=== PATIENT | female | born 1950 | race Caucasian/White ===

== ENCOUNTER 2021-10-07 08:47 | Outpatient (CLI) | payer MEDICARE, BC, SELFPAY | END 2021-10-07 08:48 | disposition home or self-care (01) | LOC: CCIC 02-17 14:07 | PROVIDERS: PCP Family Medicine; Visit Provider Internal Medicine Hematology & Oncology | DX: C92.11 Chronic myeloid leukemia, BCR/ABL-positive, in remission (principal); D47.3 Essential (hemorrhagic) thrombocythemia; E87.1 Hypo-osmolality and hyponatremia | CPT/HCPCS: 99212; 99215 ==

== ENCOUNTER 2021-12-22 13:00 | Outpatient (RCR) | payer MEDICARE, BC, SELFPAY ==
--- NOTE | 2021-09-23 16:12 | ONC.NURNOTE ---
Follow up for hyponatremia Shilpi was in touch with PCP and has a lab appt tomorrow am She understands to add sodium to her diet
--- NOTE | 2021-10-28 16:11 | ONC.NURNOTE ---
Lab results called to Shilpi, and reviewed by dr Michel noted K Shilpi is followed by nephrology and Dr Watson and will message her about elevated K Discussed avoiding foods high in potassium- list reviewed next lab appt discussed
--- NOTE | 2021-11-25 14:32 | ONC.NURNOTE ---
Lab results reviewed by Dr Michel and called to domonique as stable no changes Lab in 1 mth and then RTC with Dr Michel
== END 2022-03-16 10:37 | disposition home or self-care (01) ==
PROVIDERS: PCP Family Medicine; Visit Provider Family Medicine
DX: R26.9 Unspecified abnormalities of gait and mobility (principal); Z51.89 Encounter for other specified aftercare
CPT/HCPCS: 97110; 97112; 97140

== ENCOUNTER 2022-01-06 13:49 | Outpatient (RCR) | payer MEDICARE, BC, SELFPAY ==
--- NOTE | 2022-02-03 10:24 | ONC.NURNOTE ---
Oncology transfer: Patient wishes to stay at [place] and see the [facility]/Dr. Michel. She is going to [place] and will return for follow up in June.
--- NOTE | 2022-02-10 14:07 | ONC.NURNOTE ---
per Layla YING and Dr. Michel. ok for pt to wait till June to have a 12L EKG. orders faxed to [facility]. pt called and aware.
--- NOTE | 2022-02-10 14:15 | ONC.NURNOTE ---
Lab planning: to get all labs including BCR/ABL at 2 months- end of Feb then will get all labs upon return from [place] in June- 4 months from last lab
--- NOTE | 2022-03-04 12:49 | ONC.NURNOTE ---
Labs reviewed with Shilpi she has results and BCR/ABL shilpi [place] for [place] and will try to set up lab at a local lab in [place]- she has the order Shilpi returns in June and will need all labs including BCR/ABL, provider appt, and EKG
--- NOTE | 2022-05-04 13:40 | ONC.NURNOTE ---
Lab results received from [place] results called to Shilpi CBC all stable noted Na 128- this has been an ongoing issue for patient -results faxed to [facility] provider ( Dr Watson is out of the office) -Shilpi instructed to increase dietary Na -and to let us know what [facility] does to manage -reports some dizziness when up next appts set up -lab/EKG due at [facility] 06/29/22- orders faxed to [phone] -Dr Michel 07/12/22 refills of anagrelide needed- Layla Walker to refill
--- NOTE | 2022-05-13 14:44 | ONC.NURNOTE ---
follow up call to Shilpi regarding hyponatremia will plan for a lab recheck in [place] has increased her sodium intake and is currently feeling much better, no lightheadedness or unsteadiness
--- NOTE | 2022-05-17 11:27 | ONC.NURNOTE ---
Lab order for sodium recheck faxed to [facility] at and copy of order scanned and emailed to Shilpi
--- NOTE | 2022-05-24 15:11 | ONC.NURNOTE ---
STELLA aguila noted from [place] noted as within the normal range results called to domonique she continues to eat chips and salt her food previous symptoms have resolved next lab due in a month when she returns from [place]
== END 2022-07-05 23:59 | disposition home or self-care (01) ==
LOC: CCIC 13:49
PROVIDERS: PCP Family Medicine; Visit Provider Internal Medicine Hematology & Oncology
DX: D47.3 Essential (hemorrhagic) thrombocythemia (principal); C92.11 Chronic myeloid leukemia, BCR/ABL-positive, in remission; E87.1 Hypo-osmolality and hyponatremia
CPT/HCPCS: 99212; 99213; 99214

== ENCOUNTER 2023-01-04 12:47 | Emergency (ER) | payer MEDICARE, BC, SELFPAY ==
[2023-01-04 13:27] VITALS: BP 180/84; PULSE 70; RESP 16; TEMP 36.4; O2SAT 99; BMI 33.1
--- NOTE | 2023-01-04 13:34 | CRLHL7_ITS ---
For Patients: As a result of the Cures Act, medical imaging exams and procedure reports are released immediately into your electronic medical record. You may view this report before your referring provider. If you have questions, please contact your health care provider. INDICATION: Fall, right hip pain COMPARISON: None. TECHNIQUE: AP pelvis and AP and frog-leg lateral right hip. FINDINGS: BONES: No fracture. Normal bone mineralization. No focal bone lesion. JOINT: Alignment: Normal. Joint spaces: Osteoarthritis with mild joint space narrowing. SOFT TISSUES: Normal. IMPRESSION: Normal pelvis and right hip radiographs. Dictated by Anyi Sr MD @ 01/04/2023 2:59:29 PM (Electronically Signed)
--- NOTE | 2023-01-04 17:10 | ED.FALL ---
HPI - Fall General Time Seen by Provider: 17:10 Date Seen: 01/04/23 Chief Complaint: Fall/Minor Trauma Stated Complaint: Fell, hip pain Time Seen by Provider: 01/04/23 17:10 Source: patient, family (Daughter is with) and RN notes reviewed Mode of arrival: wheelchair Limitations: no limitations History of Present Illness HPI Narrative: Patient is here with her daughter with complaint of right hip pain, points to the outside greater trochanter area, sustained after a fall earlier today. She lost her balance, was either going to fall forward hitting her face or to the side, she allowed herself to go to the side in impact went on the right outer hip area. She could not walk after at happen. Her is home from having open heart surgery yesterday, had a valve replacement and atrial appendage closure per report. She was able to get herself up but was having significant pain and could not bear weight. Unfortunately, the ER was extremely busy and volume patient is very high, they did have to wait for a period of time to be seen, I did apologize for this wait. MD complaint: fall Related Data Home Medications Medication Instructions Recorded Confirmed calcium carbonate 200 mg calcium 400 mg PO .hs 10/06/21 01/04/23 (500 mg) chewable tablet (Antacid (calcium carbonate)) clobetasol 0.05 % topical cream 1 applic topical BID 10/06/21 01/04/23 diphenhydramine HCl 25 mg tablet 25 mg PO TID PRN 10/06/21 01/04/23 (Benadryl Allergy) flecainide 100 mg tablet 50 mg PO BID 10/06/21 01/04/23 fluticasone propionate 50 2 spray intranasal QDAY 10/06/21 01/04/23 mcg/actuation nasal spray,suspension (Flonase Allergy Relief) losartan 50 mg tablet 50 mg PO DAILY 10/06/21 01/04/23 allopurinol 100 mg tablet 100 mg PO BID 10/07/21 01/04/23 furosemide 20 mg tablet 20 mg PO BID 01/06/22 01/04/23 metoprolol succinate 50 mg 50 mg PO BID 01/06/22 01/04/23 tablet,extended release 24 hr cholecalciferol (vitamin D3) 125 125 mcg PO QDAY 08/03/22 01/04/23 mcg (5,000 unit) capsule Previous Rx's Medication Instructions Recorded anagrelide 0.5 mg capsule See Rx Instructions .Route 12/13/22 .COMPLEX #135 caps Allergies Allergy/AdvReac Type Severity Reaction Status Date / Time clindamycin Allergy Intermediate Rash Verified 01/04/23 13:26 hydrochlorothiazide Allergy Intermediate Weakness Verified 01/04/23 13:26 acyclovir Allergy Mild Unknown Verified 01/04/23 13:26 Tetracyclines Allergy Mild Unknown Verified 01/04/23 13:26 amlodipine [From Norvasc] Allergy Unknown Edema Verified 01/04/23 13:26 bee venom protein (honey bee) Allergy Unknown Lips and Verified 01/04/23 13:26 Tongue Tingling dasatinib Allergy Unknown Leg Ulcers Verified 01/04/23 13:26 hydroxyurea Allergy Unknown Skin Verified 01/04/23 13:26 Ulcerations naproxen [From Aleve] Allergy Unknown Hives Verified 01/04/23 13:26 Sulfa (Sulfonamide AdvReac Intermediate Rash Verified 01/04/23 13:26 Antibiotics) ciprofloxacin AdvReac Mild Unknown Verified 01/04/23 13:26 lisinopril AdvReac Unknown Cough Verified 01/04/23 13:26 Review of Systems Narrative: She did not hit her head, no neck or back pain. Nothing else hurts at this time. [facility] Medical History (Updated 01/04/23 @ 17:55 by Radha Du MD) Bilateral cataracts ?H26.9 - Unspecified cataract (ICD-10) Hypercholesterolemia ?E78.00 - Pure hypercholesterolemia, unspecified (ICD-10) GERD (gastroesophageal reflux disease) ?K21.9 - Gastro-esophageal reflux disease without esophagitis (ICD-10) Obstructive sleep apnea ?G47.33 - Obstructive sleep apnea (adult) (pediatric) (ICD-10) Basal cell carcinoma (BCC) (04/29/15) ?C44.91 - Basal cell carcinoma of skin, unspecified (ICD-10) Gout ?M10.9 - Gout, unspecified (ICD-10) Scleroderma ?M34.9 - Systemic sclerosis, unspecified (ICD-10) IBS (irritable bowel syndrome) ?K58.9 - Irritable bowel syndrome without diarrhea (ICD-10) Paroxysmal A-fib ?I48.0 - Paroxysmal atrial fibrillation (ICD-10) Migraine with aura ?G43.109 - Migraine with aura, not intractable, without status migrainosus (ICD-10) Anemia ?D64.9 - Anemia, unspecified (ICD-10) Hypertension ?I10 - Essential (primary) hypertension (ICD-10) Multiple food allergies ?Z91.018 - Allergy to other foods (ICD-10) Bradycardia (10/18/11) ?R00.1 - Bradycardia, unspecified (ICD-10) At risk for prolonged QT interval syndrome ?Z91.89 - Other specified personal risk factors, not elsewhere classified (ICD-10) Therapeutic drug monitoring ?Z51.81 - Encounter for therapeutic drug level monitoring (ICD-10) 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 - Chronic myeloid leukemia, BCR/ABL-positive, in remission (ICD-10) Hyponatremia ?E87.1 - Hypo-osmolality and hyponatremia (ICD-10) Lymphedema ?I89.0 - Lymphedema, not elsewhere classified (ICD-10) Essential thrombocytosis ?D47.3 - Essential (hemorrhagic) thrombocythemia (ICD-10) Surgical History History of repair of ACL ?Z98.890 - Other specified postprocedural states (ICD-10) History of facelift ?Z98.890 - Other specified postprocedural states (ICD-10) Hx laparoscopic cholecystectomy ?Z90.49 - Acquired absence of other specified parts of digestive tract (ICD-10) History of permanent cardiac pacemaker placement (12/09/11) ?Z95.0 - Presence of cardiac pacemaker (ICD-10) Family History Mother Thyroid disease Stroke Cervical cancer Diabetes Sister Colon cancer Father High blood pressure Social History Narrative: Cis-gender, heterosexual woman Relationship status: . Spouse/Partner: Raman Education: 1 year of college Occupation: Retired Tobacco: Never smoker E-cigarettes: No Alcohol: Yes: 1-2 servings/week. Illicit/recreational drugs: No Safety concerns at home or work: No Dietary restriction(s): No Exercise: No. What is your current living situation?: I presently have a place to live Problems where you live: no known problems In the past 12 months, utilities in danger of being shut off: no In past 12 months, lack of transportation kept you from medical appts, meetings, work, or getting things needed for daily living: no In the past 12 mos, have been you worried that your food would run out before you had money to buy more?: never true In the past 12 mos, the food you bought just didn't last and you didn't have money to buy more?: never true Smoking Status: Former smoker How often do you have a drink containing alcohol: never How often do you have six or more drinks on one occasion: Never AUDIT-C Alcohol total score: 0 Non-prescribed substance use: denies use How often does anyone, including family, friends and others, physically hurt you: never How often does anyone, including family, friends and others, insult or talk down to you: never How often does anyone, including family, friends and others, threaten you with harm: never How often does anyone, including family, friends and others, scream or curse at you: never service: No Exam Const: Vital Signs, click to edit/add: Vital Signs - 24 hr 01/04/23 13:27 Temperature 97.6 F Pulse Rate [Pulse Oximeter] 70 Respiratory Rate 16 Blood Pressure [Ri ght Upper Arm] 180/84 H Pulse Oximetry 99 Oxygen Delivery Me thod Room Air Shilpi is in exam room 5 in a wheelchair. Breaks or put on the wheelchair, she is able to stand, states she does feel stiff from sitting in the wheelchair for while. On inspection of the skin, I see no ecchymosis, no traumatic change. She has no midline tenderness over the lumbar spine really has no palpable tenderness in the gluteus area, she has pain over the right greater trochanter maybe just a little posteriorly over the point of the greater trochanter. Again there is no ecchymosis seen at this point. She is able to bear weight, states it does feel better than it did earlier. Did review with them that the x-ray was read by the radiologist as negative. Documenting provider has reviewed patient's vital signs: yes Course Course ED Course: Was able to review negative x-ray report when for seen them, x-ray was ordered earlier on arrival for them. Reevaluation(s) Time of Reevaluation #1: 17:52 Reevaluation #1: Did apologize that I had to take a few phone calls from Cardiology and had other patient management issues come up. Her x-rays indeed do show the area where she is painful over the greater trochanter, bone density actually does look quite good, we discussed if she still cannot bear weight, next step in imaging would be to do CT of the area. Her daughter is orthopedic PT and will stay with them, patient does have a wheeled walker. She did take some Tylenol this morning but that was before this happen. We discussed ongoing Tylenol and using some ice to the area. They are going to forego any further imaging at this time and see how she does at home. I do think this is a reasonable approach at this time. Vital Signs Vital signs: Initial Vital Signs Temperature 97.6 F 01/04/23 13:27 Temperature Source Temporal Artery Scan 01/04/23 13:27 Pulse Rate 70 01/04/23 13:27 Pulse Rhythm Regular 01/04/23 13:27 Pulse Strength 3+ Normal 01/04/23 13:27 Respiratory Rate 16 01/04/23 13:27 Blood Pressure 180/84 H 01/04/23 13:27 Blood Pressure Mean 116 H 01/04/23 13:27 Blood Pressure Position Sitting 01/04/23 13:27 Pulse Oximetry 99 01/04/23 13:27 Oxygen Delivery Method Room Air 01/04/23 13:27 Vital Signs Temperature 97.6 F 01/04/23 13:27 Pulse Rate 70 01/04/23 13:27 Respiratory Rate 16 01/04/23 13:27 Blood Pressure 180/84 H 01/04/23 13:27 Pulse Oximetry 99 01/04/23 13:27 Oxygen Delivery Method Room Air 01/04/23 13:27 Temperature 97.6 F 01/04/23 13:27 Pulse Rate 70 01/04/23 13:27 Respiratory Rate 16 01/04/23 13:27 Blood Pressure 180/84 H 01/04/23 13:27 Pulse Oximetry 99 01/04/23 13:27 Oxygen Delivery Method Room Air 01/04/23 13:27 MDM - Fall Imaging Data XR right hip/pelvis: Attestation: I have reviewed the pertinent imaging results. Radiologist's impression: Patient: SHILPI CADE Facility:?[facility] Patient ID:?[id number] Site Patient ID:?[id number]. Site :?[id number] Study:?XRay Hip Right W/PELVIS-01/04/2023 2:01:33 PM Ordering Physician:?PROVIDER TEMP Final Report: INDICATION: Fall, right hip pain COMPARISON: None. TECHNIQUE: AP pelvis and AP and frog-leg lateral right hip. FINDINGS: BONES: No fracture. Normal bone mineralization. No focal bone lesion. JOINT: Alignment: Normal. Joint spaces: Osteoarthritis with mild joint space narrowing. SOFT TISSUES: Normal. IMPRESSION: Normal pelvis and right hip radiographs. Dictated by Anyi Sr MD @ 01/04/2023 2:59:29 PM (Electronic Signature) Discharge Plan Discharge Clinical Impression: Acute pain of right hip, Fall Patient Disposition: Home, Self-Care Condition: Stable Instructions: Fall Prevention for Older Adults (ED), Hip Pain (ED) Additional Instructions: Use Tylenol per bottle directions as needed for discomfort. Would recommend trying some ice to the outside of this hip area where you are feeling the pain. Use the walker to assist in ambulation until you are not having any pain with walking. If this pain is not improving over the next few days or if at any point it does worsen, I do think you need to consider having a CT of the area to rule out occult fracture. Activity Level: Activity as Tolerated Prescriptions: No Action calcium carbonate [Antacid (calcium carbonate)] 200 mg calcium (500 mg) tablet,chewable 400 mg PO .hs losartan 50 mg tablet 50 mg PO DAILY flecainide 100 mg tablet 50 mg PO BID clobetasol 0.05 % cream 1 applic topical BID diphenhydramine HCl [Benadryl Allergy] 25 mg tablet 25 mg PO TID PRN fluticasone propionate [Flonase Allergy Relief] 50 mcg/actuation spray,suspension 2 spray intranasal QDAY Rx Instructions: administer into each nostril allopurinol 100 mg tablet 100 mg PO BID furosemide 20 mg tablet 20 mg PO BID metoprolol succinate 50 mg tablet extended release 24 hr 50 mg PO BID cholecalciferol (vitamin D3) 125 mcg (5,000 unit) capsule 125 mcg PO QDAY anagrelide 0.5 mg capsule See Rx Instructions .ROUTE .COMPLEX Qty: 135 3RF Rx Instructions: Daily, Take 0.5mg (1 tab) alternating with 1mg (2 tabs).; Follow Up/Referrals: Lindsay Simpson MD [Primary Care Provider] - Stand Alone Forms: MyHealth Info Instructions
[2023-01-04 18:03] VITALS: BP 198/79; PULSE 71; RESP 20; O2SAT 98
== END 2023-01-04 18:02 | disposition home or self-care (01) ==
PROVIDERS: Emergency Provider Family Medicine; PCP Family Medicine
DX: M25.551 Pain in right hip (principal)
CPT/HCPCS: 73502; 99282; 99283

== ENCOUNTER 2023-01-26 11:00 | Outpatient (RCR) | payer MEDICARE, BC, SELFPAY ==
--- NOTE | 2022-07-06 11:31 | ONC.NURNOTE ---
BCR/ABL called to Shilpi as stable she is working with PCP regarding hyperkalemia and hyponatremia RTC 07/22/22
--- NOTE | 2022-07-28 15:01 | ONC.NURNOTE ---
Lab results reviewed as stable and left on Benita voice mail returns to see Dr Michel next week
--- NOTE | 2023-01-18 15:07 | ONC.NURNOTE ---
Lab results noted and called to Shilpi increasing anemia, BCR ABL pending sees Dr Michel next week continues on anagrelide .5/1.0 every other day
== END 2023-01-30 23:59 | disposition home or self-care (01) ==
LOC: CCIC 11:00
PROVIDERS: PCP Family Medicine; Visit Provider Internal Medicine Hematology & Oncology
DX: D47.3 Essential (hemorrhagic) thrombocythemia (principal); C92.11 Chronic myeloid leukemia, BCR/ABL-positive, in remission; I89.0 Lymphedema, not elsewhere classified
CPT/HCPCS: 99212; 99213; 99214

== ENCOUNTER 2024-01-11 15:00 | Outpatient (RCR) | payer MEDICARE, BC, SELFPAY ==
--- NOTE | 2023-03-16 13:43 | ONC.NURNOTE ---
prescription for compression stocking faxed to [facility] per pt request. .
--- NOTE | 2023-04-19 11:05 | ONC.NURNOTE ---
Addendum entered by Gillian Welsh, RN 04/19/23 15:32: Dr Michel sent RX for Shilpi to address hyperkalemia-Dr Hassan office notified Shilpi was not able to fill at local [facility] pharmacy and was going to call if available elsewhere in the area, otherwise she will fill at [facility] in [place] Original Note: Labs received from [facility] noted K5.8 patient called with results -reports no symptoms of irregular heart rate results called to Dr Tg Rouse's nurse- as her PCP patient is leaving on a 6 pm flight to [place] today
--- NOTE | 2023-04-27 13:43 | ONC.NURNOTE ---
Shilpi phoned from [place] with update on hyperkalemia -she was not able to fill the RX from Dr Michel- but did get alternate instructions from Dr Rouse to take extra doses of lasix for 3 days -she reports no symptoms or arrhythmias and has been avoiding foods high in K -she returns from [place] tomorrow and has lab scheduled per Dr Rouse -BCR ABL results noted and reviewed by Dr Michel and Shilpi- continues to be negative labs for next blood draw [place] [facility] [place]- with Dr Michel on 07/25/23
--- NOTE | 2023-07-12 12:24 | ONC.NURNOTE ---
[place] [facility] called to Shilpi as stable per her baseline BCR/Abl pending Returns in [address] Michel follow up
--- NOTE | 2023-10-10 11:38 | ONC.NURNOTE ---
BCR ABL undetectable- results called to Shilpi
[2023-12-26 14:14] LABS: Basophils Absolute Auto 0.06 K/uL (0.00-0.30); Basophils Percent Auto 0.8 % (0.0-3.0); Eosinophils Absolute Auto 0.13 K/uL (0.00-0.50); Eosinophils Percent Auto 1.6 % (0.0-7.0); Hemoglobin* 10.5 gm/dL (12.0-16.0); Immature Granulocytes Abs Auto 0.01 K/uL (0.00-0.30); Immature Granulocytes Pct Auto 0.1 %; Lymphocytes Percent Auto 17.7 % (20-44); Mean Corpuscular HGB Conc 32 gm/dL (32-36); Mean Corpuscular Hemoglobin 34 pg (26-34); Mean Corpuscular Volume 106 fL (80-100); Monocytes Percent Auto 9.2 % (0.0-11.0); Neutrophils Absolute Auto 5.57 K/uL (1.7-7.0); Neutrophils Percent Auto 70.6 % (42.0-72.0); Platelet Count* 407 K/uL (140-440); RDW Coefficient of Variation % 13.9 % (11.5-15.5); Red Blood Count 3.12 m/uL (4.00-5.20)
[2023-12-26 14:17] LABS: Slide Review Reflex No
[2023-12-26 14:53] LABS: Albumin* 4.9 g/dL (3.3-5.0)
[2023-12-26 14:54] LABS: Chloride* 102 mmol/L (96-114); Potassium* 4.5 mmol/L (3.6-5.1); Sodium* 136 mmol/L (135-149)
[2023-12-26 14:56] LABS: Bilirubin Total* 0.5 mg/dL (0.1-1.5); Estimated Glomerular Filt Rate 26 ml/min
[2023-12-26 14:57] LABS: Alanine Aminotransferase* 17 U/L (4-35); Alkaline Phosphatase* 120 U/L (40-150); Anion Gap 11 mEq/L (7-15); Aspartate Amino Transferase* 24 U/L (12-35); Blood Urea Nitrogen* 49 mg/dL (7-30); Calcium* 9.6 mg/dL (8.4-10.6); Carbon Dioxide* 23 mmol/L (20-32); Glucose* 101 mg/dL (60-115); Lactate Dehydrogenase* 224 U/L (120-246); Total Protein* 8.2 g/dL (6.0-8.3)
[2023-12-30 13:02] LABS: QuantBCR-ABL Major p210 Result Not Detected; QuantBCR-ABL Major p210 Source Not Provided
[2024-01-11 15:48] LABS: INR 1.04 (0.91-1.10); Prothrombin Time 14.2 Seconds
[2024-01-11 15:50] LABS: Partial Thromboplastin Time* 31 Seconds (23-33)
== END 2024-01-21 23:59 | disposition home or self-care (01) ==
LOC: CCIC 15:00
PROVIDERS: PCP Family Medicine; Referring Provider Family Medicine; Visit Provider Internal Medicine Hematology & Oncology
DX: D47.3 Essential (hemorrhagic) thrombocythemia (principal); C92.11 Chronic myeloid leukemia, BCR/ABL-positive, in remission; R58 Hemorrhage, not elsewhere classified; I89.0 Lymphedema, not elsewhere classified; Z91.89 Other specified personal risk factors, not elsewhere classified
CPT/HCPCS: 36415; 80053; 81206; 83615; 85025; 85610; 85730; 99213; 99214; G0463

== ENCOUNTER 2024-03-12 13:15 | Outpatient (RCR) | payer MEDICARE, BC, SELFPAY ==
--- NOTE | 2023-12-27 13:04 | ONC.NURNOTE ---
Left message on VM with lab results noted as stable BCR pending RTC in [address] Michel
== END 2024-07-10 23:59 | disposition home or self-care (01) ==
PROVIDERS: PCP Family Medicine; Visit Provider Family Medicine
DX: M54.2 Cervicalgia (principal); M54.50 Low back pain, unspecified; Z51.89 Encounter for other specified aftercare
CPT/HCPCS: 97110; 97140; 97162

== ENCOUNTER 2024-07-18 13:00 | Outpatient (RCR) | payer MEDICARE, BC, SELFPAY ==
[2024-03-19 13:13] LABS: Hematocrit 31.4 % (33.0-51.0); Hemoglobin* 10.2 gm/dL (12.0-16.0); Immature Granulocytes Abs Auto 0.01 K/uL (0.00-0.30); Immature Granulocytes Pct Auto 0.1 %; Mean Corpuscular HGB Conc 33 gm/dL (32-36); Mean Corpuscular Hemoglobin 33 pg (26-34); Mean Corpuscular Volume 102 fL (80-100); RDW Coefficient of Variation % 12.6 % (11.5-15.5); Red Blood Count 3.07 m/uL (4.00-5.20); White Blood Count* 9.09 K/uL (4.50-11.00)
[2024-03-19 13:28] LABS: Albumin* 4.5 g/dL (3.3-5.0); Lymphocytes Absolute Auto 1.30 K/uL (0.90-2.90); Slide Review Reflex No
[2024-03-19 13:29] LABS: Chloride* 99 mmol/L (96-114); Potassium* 5.2 mmol/L (3.6-5.1); Sodium* 131 mmol/L (135-149)
[2024-03-19 13:31] LABS: Bilirubin Total* 0.6 mg/dL (0.1-1.5); Creatinine* 1.9 mg/dL (0.5-1.5); Estimated Glomerular Filt Rate 28 ml/min
[2024-03-19 13:32] LABS: Alanine Aminotransferase* 12 U/L (4-35); Alkaline Phosphatase* 116 U/L (40-150); Anion Gap 8 mEq/L (7-15); Aspartate Amino Transferase* 20 U/L (12-35); Blood Urea Nitrogen* 53 mg/dL (7-30); Calcium* 9.1 mg/dL (8.4-10.6); Carbon Dioxide* 24 mmol/L (20-32); Glucose* 110 mg/dL (60-115); Total Protein* 7.6 g/dL (6.0-8.3)
--- NOTE | 2024-03-19 14:24 | ONC.NURNOTE ---
Addendum entered by Gillian Welsh RN 03/20/24 13:58: multiple chemistries run yesterday with an errant K noted and recheck within normal limits, Shilpi was notified Original Note: lab results reviewed with Shilpi- noted Na and K- patient follows and within the range she often runs will add more Na to diet
[2024-03-23 16:43] LABS: QuantBCR-ABL Major p210 Result Not Detected; QuantBCR-ABL Major p210 Source Whole Blood; QuantBCR-ABLMajor p210 IS % 0.0000 %
--- NOTE | 2024-03-28 15:03 | ONC.NURNOTE ---
BCR/ABL called to Shilpi, noted as undetected
[2024-07-04 13:29] LABS: Hematocrit 32.2 % (33.0-51.0); Hemoglobin* 10.3 gm/dL (12.0-16.0); Immature Granulocytes Abs Auto 0.02 K/uL (0.00-0.30); Immature Granulocytes Pct Auto 0.3 %; Mean Corpuscular HGB Conc 32 gm/dL (32-36); Mean Corpuscular Hemoglobin 33 pg (26-34); Mean Corpuscular Volume 103 fL (80-100); RDW Coefficient of Variation % 12.9 % (11.5-15.5); Red Blood Count 3.13 m/uL (4.00-5.20); White Blood Count* 7.33 K/uL (4.50-11.00)
[2024-07-04 13:30] LABS: Lymphocytes Absolute Auto 1.40 K/uL (0.90-2.90); Slide Review Reflex No
[2024-07-04 13:38] LABS: Albumin* 4.6 g/dL (3.3-5.0); Chloride* 104 mmol/L (96-114); Potassium* 4.8 mmol/L (3.6-5.1); Sodium* 137 mmol/L (135-149)
[2024-07-04 13:40] LABS: Alanine Aminotransferase* 15 U/L (4-35); Anion Gap 10 mEq/L (7-15); Aspartate Amino Transferase* 27 U/L (12-35); Blood Urea Nitrogen* 64 mg/dL (7-30); Carbon Dioxide* 23 mmol/L (20-32); Creatinine* 2.1 mg/dL (0.5-1.5); Estimated Glomerular Filt Rate 25 ml/min
[2024-07-04 13:41] LABS: Alkaline Phosphatase* 112 U/L (40-150); Bilirubin Total* 0.8 mg/dL (0.1-1.5); Calcium* 9.2 mg/dL (8.4-10.6); Glucose* 97 mg/dL (60-115); Total Protein* 7.6 g/dL (6.0-8.3)
[2024-07-09 17:12] LABS: QuantBCR-ABL Major p210 Result Not Detected; QuantBCR-ABL Major p210 Source Not Provided; QuantBCR-ABLMajor p210 IS % 0.0000 %
== END 2024-09-15 23:59 | disposition home or self-care (01) ==
LOC: CCIC 13:00
PROVIDERS: PCP Family Medicine; Referring Provider Family Medicine; Visit Provider Internal Medicine Hematology & Oncology
DX: D47.3 Essential (hemorrhagic) thrombocythemia (principal); C92.11 Chronic myeloid leukemia, BCR/ABL-positive, in remission; I89.0 Lymphedema, not elsewhere classified; N18.4 Chronic kidney disease, stage 4 (severe)
CPT/HCPCS: 36415; 80048; 80053; 80069; 80076; 81001; 81206; 82043; 82570; 83615; 83970; 84156; 85018; 85025; 87086; 87186; 99214; G0463

== ENCOUNTER 2024-11-05 12:59 | Outpatient (CLI) | payer MEDICARE, BC, SELFPAY ==
[2024-11-05 14:17] LABS: Anion Gap 8 mEq/L (7-15); Carbon Dioxide* 25 mmol/L (20-32); Chloride* 98 mmol/L (96-114); Potassium* 4.6 mmol/L (3.6-5.1); Sodium* 131 mmol/L (135-149)
[2024-11-05 14:18] LABS: Albumin* 4.6 g/dL (3.3-5.0); Blood Urea Nitrogen* 36 mg/dL (7-30); Calcium* 9.7 mg/dL (8.4-10.6); Creatinine* 1.7 mg/dL (0.5-1.5); Estimated Glomerular Filt Rate 31 ml/min; Glucose* 100 mg/dL (60-115)
[2024-11-05 14:20] LABS: Hemoglobin* 10.5 gm/dL (12.0-16.0)
[2024-11-05 14:56] LABS: PTH Intact* 90.7 pg/mL (14.2-75.2)
== END 2024-11-05 13:00 | disposition home or self-care (01) ==
PROVIDERS: PCP Family Medicine; Visit Provider Internal Medicine Nephrology
DX: N18.4 Chronic kidney disease, stage 4 (severe) (principal)
CPT/HCPCS: 36415; 80053; 80069; 82043; 82570; 83615; 83970; 85018; 85025

== ENCOUNTER 2025-03-04 11:10 | Outpatient (REF) | payer MEDICARE, BC, SELFPAY ==
--- OUTSIDE RECORDS SUMMARY | 2022-05-16 13:20 | XMS_ITS | Continuity of Care Document ---
Author Organization [facility] Address [address] [place] [address] Phone Care Team Providers Care Crm Solution Architect Name Role Phone No Information Unavailable Unavailable Allergies, Adverse Reactions, Alerts Substance Reaction Status Criticality METOPROLOL TARTRATE Active No Infor mation hydrochlorothiazide Active No Infor mation CIPROFLOXACIN HCL Active No Informa tion ciprofloxacin Active No Information Sulfa (Sulfonamide Antibiotics) Active No Information Medications Medication Instructions Dosage Effective Dates (start - stop) Status Comments anagrelide 0.5 mg capsule take 2 capsule by oral route 2 times every day 1 MG - Active LOSARTAN POTASSIUM (unknown strength) take 1 tablet by oral route every day Not Available - Active HYDRALAZINE HCL (unknown strength) inject 1 milliliter by intramuscular route every 4 hours as needed Not Available - Active LASIX (unknown strength) take 1 tablet by oral route every day Not Available - Active KAPSPARGO SPRINKLE (unknown strength) take 1 capsule by oral route every day Not Available - Active ALLOPURINOL (unknown strength) take 1 tablet by oral route 3 times every day Not Available - Active cephalexin 500 mg capsule take 1 capsule by oral route every 8 hours 500 MG - No Longer Active Procedures Procedure Date Surgical Trays Offic/outpt E&m New Mod Sever Services provided in an urgent care cent er Advance Directives Directive Yes / No Effective Date File Name No Information Encounters Encounter Description Practice Location Reason(s) For Visit Diagnoses Date Provider Providers Copied on Encounter [facility], [address], [place], [place], [id number], [place] tel:[phone] [facility]ly [facility] No Information No Information Offic/outpt E&m New Mod Sever [facility], [address], [place], [place], [id number], [place] tel:[phone] [facility] Laceration (chief complaint) Laceration of right elbow, initial encounter 3 No Information Family History Family Member Type Diagnosis Age At Onset No Information Payers Payer name Insurance type Covered republican ID Authoriza tion(s) No Information Social History Type Description Quantity Date Captured Comments Sex Female Smoking Status No Information Chief Complaint And Reason For Visit No Information Reason For Referral Reason For Referral No Information History Of Present Illness Encounter Date Complaint History Of Prese nt Illness Comments: last t etanus within 10yrs Laceration This is an initi al visit. The injury occurred 1 hour ago. The trauma occurred due to a fall while at home approximately 1 hour ago. Mechanism of injury details: RT ELBOW LACERATION X1HOUR. The patient has a laceration on the right elbow, measuring 2.0000 by 1.0000 cm and is described as linear. The injury is aggravated by local pressure and movement. Interventions the patient has tried have not provided any relief. The injury is associated with decreased mobility. The patient denies any abdominal pain, change in appetite, chills, diarrhea, fatigue, fever, generalized weakness, headache, joint pain, localized swelling, lymphadenopathy, malaise, nausea, rash, somnolence, vomiting and weight loss. Functional Status Date Functional Assessmen t No Information Instructions Date Instruction Additional Infor mation KEEP DRESSING CLEAN AND DRY. DO NOT IMMERSE WOUND ( IN DISHWATER) HOWEVER YOU MAY SHOWER, ETC AFTER 24 HOURS. LEAVE INITIAL DRESSING IN PLACE TODAY, THEN REMOVE AND USE A NEW DRY DRESSING EACH DAY UNTIL WELL HEALING. YOU MAY APPLY SMALL AMOUNT OF BACITRACIN OR NEOSPORIN TO YOUR WOUND THE FIRST 2-3 DAYS WHENEVER YOU CHANGE YOUR DRESSING/BANDAID. DO NOT APPLY A TOPICAL ANTIBIOTIC OR OTHER WOUND CARE PRODUCT AFTER THE 3RD DAY. WATCH CLOSELY FOR THESE SIGNS OF INFECTION: REDNESS; DRAINAGE/PUS; WARMTH AT SITE OR GENERAL FEVER; SWELLING; RED STREAKS; INCREASING PAIN. RETURN TO THE CLINIC OR GO TO THE EMERGENCY ROOM IF THESE SYMPTOMS DEVELOP. Related to Laceration of right elbow, initial encounter Assessments Type Assessment Date No Information Patient Care Teams Name Effective Dates (start - stop) Status Members No Information
--- OUTSIDE RECORDS SUMMARY | 2024-11-02 03:44 | XMS_ITS | Continuity of Care Document ---
Author Organization [facility] Address [address] [address] [place] [address] Phone Care Team Providers Care Land Agent Name Role Phone Nando Weber DO Unavailable Unavailable Allergies, Adverse Reactions, Alerts Substance Reaction Status Criticality aspirin Angioedema Active No Information sulfamethizole Rash Active No Informatio n CIPROFLOXACIN HCL Rash Active No Informa tion sulindac Rash Active No Information lactase Active No Information egg Active No Information strawberry Active No Information banana Active No Information avocado Active No Information shrimp Active No Information peanut Active No Information CIPROFLOXACIN HCL Active No Informa tion ciprofloxacin Active No Information Sulfa (Sulfonamide Antibiotics) Active No Information Medications Medication Instructions Dosage Effective Dates (start - stop) Status Comments Golytely 236 gram-22.74 gram-6.74 gram-5.86 gram oral solution Take as directed in colon prep instructions from [facility]. - Active Please keep on file for upcoming procedure 10/16/24. Okay to dispense generic alternative such as Trilyte, Gavilyte, Peg 3350 or Colyte Florastor 250 mg capsule - Active colchicine 0.6 mg capsule take 1 capsule by oral route every day 0.6 MG - Active lisinopril 20 mg tablet take 1 tablet by oral route every day 20 MG - Active Tylenol 325 mg tablet take 2 tablet by oral route every 6 hours as needed 650 MG - Active anagrelide 0.5 mg capsule take 2 capsule by oral route 2 times every day 1 MG - Active metoprolol tartrate 50 mg tablet take 1 tablet by oral route 2 times every day with meals 50 MG - Active furosemide 20 mg tablet take 1 tablet by ORAL route 2 times every day 20 MG - Active flecainide 100 mg tablet take 1 tablet by oral route every 12 hours 100 MG - Active losartan 50 mg tablet take 1 tablet by oral route every day 50 MG - Active allopurinol 100 mg tablet take 1 tablet by ORAL route every day 100 MG - Active VITAMIN D3 COMPLETE (unknown strength) Not Available - Active Procedures Procedure Date Colonoscopy Flex; W/bx 1/mx cancelled appt Colonoscopy Flex; W/remov Les- 24 Level Iv-surg Path Gross/micro 24 Stool Kits Given Stool Kits Given Telephone E&M III 21-30 Min JOSH Small Intestinal Imaging Advance Directives Directive Yes / No Effective Date File Name No Information Encounters Encounter Description Practice Location Reason(s) For Visit Diagnoses Date Provider Providers Copied on Encounter [facility], [address] [address], [place], [place], [id number], [place] tel:[phone] [facility] No Information 5 Gus Samuel. [address] [facility], [address], [id number], [place]. tel:[phone] [facility], [address] [address], [place], [place], [address], [place] tel:[phone] [facility] No Information 5 Gus Samuel. [address] [facility], [facility] [address], [place], [address], [place]. tel:[phone] Referring Provider: Tg Rouse DO, [address] [place], [address]. tel:[phone] [facility], [address] [address], [place], [place], [address], [place] tel:[phone] [facility] No Information 5 Tee Meehan. [address] [facility], [facility] [address], [place], [place], [address], [place]. tel:[phone] [facility], [address] [address], [place], [place], [address], [place] tel:[phone] [facility] No Information 5 Richar Mitchell. [address] [facility], [facility] [address], [place], [id number], [place]. tel:[phone] Referring Provider: Referral Self, USE FOR SELF REFERRALS. [facility], [address] [address], [place], [place], [address], [place] tel:[phone] [facility] No Information 5 Richar Mitchell. [address] [facility], [facility] [address], [place], [address], [place]. tel:[phone] [facility], [address] [address], [place], [address], [place] tel:[phone] [facility] GI Symptoms or Concerns (chief complaint) Colorectal polypsHemorrho ids, internalEncoun ter for follow-up examination after completed treatment for conditions other than malignant neoplasmBenign neoplasm of ascending colonBenign neoplasm of descending colonFamily history of malignant neoplasm of digestive organs 4 Richar Mitchell. [address] [facility] [address], [place], [id number], [place]. tel:[phone] Referring Provider: Tg Rouse DO, [address] [place] [address], [address]. tel:[phone] [facility], [address] [address], [place], [address], [place] tel:[phone] [facility] No Information 4 Richar Mitchell. [address] [facility], [facility] [address], [place], [address], [place]. tel:[phone] [facility], [address] [address], [place], [address], [place] tel:[phone] [facility] Diarrhea, unspecified 1 Eddie Sales. [address] [place] [address], [address], [id number], [place]. tel:[phone] Referring Provider: Referral Self, USE FOR SELF REFERRALS. [facility], [address] [address], [place], [place], [id number], [place] tel:[phone] [facility] No Information 1 Shabana Munoz. [address] [place] [address], [address], [id number], [place]. [phone] Telephone E&M III 21-30 Min JOSH [facility], [address] [address], [place], [place], [address], [place] tel:[phone] [facility] GI Symptoms or Concerns (chief complaint) Intermittent diarrheaIrregu lar bowel habits 1 Eddie Sales. [address] [place] [address], [address], [id number], [place]. tel:[phone] Referring Provider: Ar Palomo, [address] [place] [address], [place], [address]. tel:[phone] [facility], [address] [address], [place], [address], [place] tel:[phone] [facility] No Information 0 Shabana Munoz. [address] [place] [address], [address], [id number], [place]. tel:[phone] [facility], [address] [address], [place], [address], [place] tel:[phone] [facility] GI BleedIron Deficiency Anemia 0-200 8 No Information Family History Family Member Type Diagnosis Age At Onset Father Problem (finding) GERD Son Problem (finding) GERD Father Problem (finding) Gallbladder disease Brother Problem (finding) GERD Mother Problem (finding) Cancer, cervical Sister Problem (finding) malignant tumor of rect um Mother Problem (finding) Thyroid disorder Sister Problem (finding) cancer of colon Mother Problem (finding) Cancer, uterine Sister Problem (finding) Cancer, rectal Brother Problem (finding) Gallbladder disease Immunizations Vaccine Date Status Comments SARS-COV-2 (COVID-19) vaccin e, mRNA, spike protein, LNP, preservative free, 50 mcg/0.5 mL dose administered Note: [facility] bi-direct ional interface ; Source: Other Registry SARS-COV-2 (COVID-19) vaccin e, mRNA, spike protein, LNP, preservative free, zainab-sucrose, 30 mcg/0.3 mL dose administered Note: [facility] bi-direct ional interface ; Source: Other Registry Influenza, high-dose, split virus, trivalent, injectable, preservative free administered Note: [facility] bi-direct ional interface ; Source: Other Registry Respiratory syncytial virus (RSV), vaccine, recombinant, protein subunit RSV prefusion F, adjuvant reconstituted, 0.5 mL, preservative free administered Note: [facility] bi-direct ional interface ; Source: Other Registry Influenza, high-dose, split virus, quadrivalent, injectable, preservative free administered Note: [facility] bi-direct ional interface ; Source: Other Registry SARS-COV-2 (COVID-19) vaccin e, mRNA, spike protein, LNP, preservative free, zainab-sucrose, 30 mcg/0.3 mL dose administered Note: [facility] bi-direct ional interface ; Source: Other Registry Influenza, adjuvanted, inactivated, quadrivalent, injectable, preservative free administered Note: [facility] bi-directional interface ; Source: Other Registry SARS-COV-2 (COVID-19) vaccin e, mRNA, spike protein, LNP, bivalent, preservative free, 30 mcg/0.3 mL dose, zainab-sucrose formulation administered Note: [facility] bi-direct ional interface ; Source: Other Registry SARS-COV-2 (COVID-19) vaccin e, mRNA, spike protein, LNP, preservative free, 30 mcg/0.3mL dose, zainab-sucrose formulation administered Note: [facility] C bi- directional interface ; Source: Other Registry Influenza, adjuvanted, inactivated, quadrivalent, injectable, preservative free administered Note: [facility] bi-directional interface ; Source: Other Registry SARS-COV-2 (COVID-19) vaccin e, mRNA, spike protein, LNP, preservative free, 30 mcg/0.3mL dose administered Note: [facility] bi-direct ional interface ; Source: Other Registry SARS-COV-2 (COVID-19) vaccin e, mRNA, spike protein, LNP, preservative free, 30 mcg/0.3mL dose administered Note: [facility] bi-direct ional interface ; Source: Other Registry SARS-COV-2 (COVID-19) vaccin e, mRNA, spike protein, LNP, preservative free, 30 mcg/0.3mL dose administered Note: [facility] bi-direct ional interface ; Source: Other Registry Influenza, adjuvanted, inactivated, quadrivalent, injectable, preservative free administered Note: [facility] bi-directional interface ; Source: Other Registry influenza, seasonal vaccine, quadrivalent, adjuvanted, .5mL dose, preservative free administered Note: [facility] bi-di rectional interface ; Source: Other Registry Afluria Qd administered Note: [facility] bi-directional interface ; Source: Other Registry Afluria Qd administered Note: [facility] bi-directional interface ; Source: Other Registry Influenza, adjuvanted, inactivated, trivalent, injectable, preservative free administered Note: [facility] bi-directional interface ; Source: Other Registry Seasonal trivalent influenza vaccine, adjuvanted, preservative free administered Note: [facility] bi-direct ional interface ; Source: Other Registry Pneumovax 23 administered Note: [facility] bi-d irectional interface ; Source: Other Registry tetanus and diphtheria toxoi ds, adsorbed, preservative free, for adult use (2 Lf of tetanus toxoid and 2 Lf of diphtheria toxoid) administered Note: [facility] bi-direct ional interface ; Source: Other Registry Influenza administered Note: [facility] bi-d irectional interface ; Source: Other Registry Afluria Qd administered Note: [facility] bi-directional interface ; Source: Other Registry Afluria Qd administered Note: M [facility] bi-directional interface ; Source: Other Registry influenza virus vaccine, unspecified formulation administered Note: [facility] bi-di rectional interface ; Source: Other Registry Afluria Qd administered Note: [facility] bi-directional interface ; Source: Other Registry Afluria Qd administered Note: M [facility] bi-directional interface ; Source: Other Registry Prevnar 13 administered Note: [facility] bi-d irectional interface ; Source: Other Registry Novel [id number], all formulations administered Note: [facility] bi-direct ional interface ; Source: Other Registry tetanus toxoid, reduced diphtheria toxoid, and acellular pertussis vaccine, adsorbed administered Note: [facility] b i-directional interface ; Source: Other Registry Havrix administered Note: [facility] bi-d irectional interface ; Source: Other Registry Payers Payer name Insurance type Covered republican ID Authoriza tion(s) No Information Social History Type Description Quantity Date Captured Comments Alcohol Use Details Unknown Caffeine Use Details Unknown Tobacco Use Status No Information Smoking Status No Information Sex Female Chief Complaint And Reason For Visit No Information Reason For Referral Reason For Referral No Information Plan Of Treatment Date Type Action Status Referral Ordered: Colonoscopy Appointment date/timeframe: 07/31/2024 [id number] Ordered: referred to Colon and Rectal Surgery for Consult with Pelvic Floor MD to disc Appointment date/timeframe: 12/30/2020 [id number] Ordered: Fecal Fat, Qualitative Appointment date/timeframe: 07/03/2020 [id number] Ordered: Pancreatic Elastase, Fecal Appointment date/timeframe: 07/03/2020 ordered History Of Present Illness Encounter Date Complaint History Of Prese nt Illness GI Symptoms or Concerns GI Symptoms or Concerns Ms. Florina borja is a 69-year-old woman with history of thrombocythemia, CML, C. difficile infection (symptoms resolved, never treated) and cholecystectomy (), who is seen at the request of Dr. Ar Grossman for symptoms of intermittent diarrhea.Ms. Pizarro describes several years of irregular stools tending towards diarrhea. She states this has been going on for at least 3 years. She describes episodes of urgent of stool blowouts where she sits on the toilet for up to an hour passing urgent, unexpected, loose stools. She will have 1 or 2 of these episodes in a day before she feels like she is fully emptied. Thereafter, she can go for a couple of days and she typically has no stools whatsoever.She does not have any particular abdominal pain or cramping with this. She does not have any blood in the stool. She has no nausea or vomiting. She has not had any skin rashes or arthralgias symptoms.Throughout this workup, she did have C. difficile testing as mention Functional Status Date Functional Assessmen t No Information Instructions Date Instruction Additional Infor mation Colon Cancer Prevention Related to Colorectal polyps Colon Polyps Related to Color ectal polyps Hemorrhoids Related to Color ectal polyps Assessments Type Assessment Date No Information Patient Care Teams Name Effective Dates (start - stop) Status Members No Information
[2025-03-04 12:15] LABS: Albumin* 4.4 g/dL (3.3-5.0); Chloride* 102 mmol/L (96-114); Potassium* 4.4 mmol/L (3.6-5.1); Sodium* 136 mmol/L (135-149)
[2025-03-04 12:18] LABS: Anion Gap 11 mEq/L (7-15); Blood Urea Nitrogen* 73 mg/dL (7-30); Calcium* 9.1 mg/dL (8.4-10.6); Carbon Dioxide* 23 mmol/L (20-32); Creatinine* 2.1 mg/dL (0.5-1.5); Estimated Glomerular Filt Rate 24 ml/min; Glucose* 118 mg/dL (60-115)
[2025-03-04 12:30] LABS: PTH Intact* 170.4 pg/mL (14.2-75.2)
--- OUTSIDE RECORDS SUMMARY | 2025-03-05 00:19 | XMS_ITS | Clinical Summary ---
Author Organization [facility] Address [address] [place] [address] Care Team Providers Care Farm Butcher Name Role Phone Tg Rouse DO Primary Care Provider [phone] Allergies Active AllergyReactionsCriticalityNoted KnbyXeklvxodRwpsyepvzsMblmsyil83/14/2007 leg edema AspirinOther (See Comments)06/08/2005 Gums felt swollen AvocadoOther (See Comments)03/24/20201523Ocdifr19/02/2025Bee VenomAnaphylaxisHigh 01/04/2023FurosemideMuscle Pain (Myalgia)10/24/20115485Knaboyofmznqxpsxvnj02/03/2007 Intolerance, weakness Mwnpaktvfyt06/08/2007 Reaction - skin ulcerations LisinoprilCough,Other (See Comments)11/14/20120845ImnjjnefCqqmu47/28/2006Naproxen WrlfjqXaodc57/12/2012Peanut-Containing Drug ProductsGI Disturbance,Other (See Comments),Nausea and Jszqsxmi80/28/2006Shrimp XwjhuhkOomyWzi04/11/2021trawberry ZrehvozEgmrCjs28/11/2382Vjbskhpcktrxu37/20/8460HvcgholndOqlnprub85/11/2021Wasp Venom ProteinOther (See Comments)06/08/2005 Lips felt tingly; tongue felt odd/hot Medications MedicationSigDispense QuantityRefillsLast FilledStart DateEnd DateStatus acetaminophen (TYLENOL) 325 MG tablet Take 500 mg by mouth every 8 hours as needed.4Active anagrelide (AGRYLIN) 0.5 MG capsule Take 0.5 mg by mouth daily.5Active cholecalciferol 125 MCG (5000 UT) CAPS Take 2,000 Units by mouth daily.4Active dapagliflozin (FARXIGA) 10 MG TABS tablet Take 10 mg by mouth daily.5Active flecainide (TAMBOCOR) 50 MG tablet Take 50 mg by mouth every 12 hours.4Active furosemide (LASIX) 20 MG tablet Take 20 mg by mouth 2 times daily.5Active losartan (COZAAR) 100 MG tablet Take 12.5 mg by mouth daily.Active metoprolol succinate ER (TOPROL XL) 50 MG 24 hr tablet Take 50 mg by mouth 2 times daily.11/09/2023ctive Social History Tobacco UseTypesPacks/DayYears UsedDateSmoking Tobacco: WrroqyIgtrzycmff6Lphg: 12/1984Smokeless Tobacco: Never Tobacco Cessation:Counseling Given: Not Answered Alcohol UseStandard Drinks/WeekCommentsYes0 (1 standard drink = 0.6 oz pure alcohol)1-2 a weekCommentsUnknownSex and Gender InformationValueDate RecordedSex Assigned at BirthNot on fileLegal RsnAibszi37/04/2012 3:30 AM PROBATION AND PATROL AGENT Gender IdentityNot on fileSexual OrientationNot on file Last Filed Vital Signs Vital SignReadingTime TakenCommentsBlood Mnekuihl339/7008 11:40 AM CDT Wygra552410/16/2024 11:40 AM CDTTemperature--Respiratory Vbmd91110/16/2024 11:40 AM CDTOxygen Qeskohmwfg75%10/16/2024 11:40 AM CDTInhaled Oxygen Concentration-- Jxuzaa81.8 kg (220 lb)10/16/2024 10:33 AM RLGUycdxe829.4 cm (5' 5.5)10/16/2024 10:33 AM CDTBody Mass Index36.05010/16/2024 10:33 AM CDT Plan of Treatment Health MaintenanceDue DateLast DoneCommentsADVANCE CARE DTGYUSFG60/13/1952NNUAL REVIEW OF HM EADRWN942CT JQBORPJYPPBF44/13/1952DIABETES SCREENING 1950FIT1950FLEX SIG1950DNA (Cologuard)1950LIPID 1991ZOSTER VACCINE (1 of 2)08/24/2001FALL RISK KCCJGCNHTD80/13/2017PHQ-2 (once per calendar year)5COVID-19 VACCINE (2024- season) 504/, 01/14/2024, 12/31/2022, Additional history existsINFLUENZA VACCINE (#1)511/04/2023, 12/31/2022, 12/09/2021, Additional history existsMEDICARE ANNUAL WELLNESS VISIT, 01/13/2022MAMMO VQATPSNAP32, 12/20/2023, 12/17/2022, Additional history exists DTAP/TDAP/TD VACCINE (3 - Td or Tdap), 02/24/2007, 09/08/20005265QCLHUJIPOYE58, 10/16/2024, 01/16/2024OLORECTAL CANCER LSWMPAITY11/05/9534GUOA01HEPATITIS C SCREENINGCompleted 09/01/2016PNEUMOCOCCAL VACCINE 50+ ZZBCJIpvdhyrkw65/18/2018, 07/25/2014, 01/10/2001RSV XHYMSLDVanarrmos75/04/2024HPV VACCINE (No Doses Required)Completed MENINGITIS VACCINEAged OutNo longer eligible based on patient's age to complete this topic Procedures Procedure NamePriorityDate/TimeAssociated DiagnosisCommentsCOLONOSCOPYRoutine 10/16/2024 10:58 AM CDT from Last 3 Months or Most Recently Relevant to Health Maintenance Results * COLONOSCOPY (10/16/2024 10:58 AM CDT)ComponentValueRef RangeTest Method Analysis TimePerformed AtPathologist SignatureCOLONOSCOPYLaura Ville [address] [address] ??[place] ??[address] Patient Name: Shilpi Pizarro ?Procedure Date: 10/16/2024 10:58 AM ? Date of : 1950 ?Admit Type: Outpatient Age: 74 ? Room: [place] [address] Note Status: Finalized ?Attending MD: NANDO WEBER DO, Instrument Name: 528 [id number] Adult Colon Procedure: ?Colonoscopy Indications: ?High risk colon cancer surveillance: Personal ?history of colonic polyps - 5 SSA removed 01/16/24, ?largest in the distal ascending colon, no tattoo ?placed, chronic diarrhea since cholecystectomy Providers: ?NANDO WEBER DO, Heatheremi Lopez RN Referring MD: ? AILYN SWAN MD Medicines: ?Monitored Anesthesia Care Complications: ?No immediate complications. Procedure: ?Pre-Anesthesia Assessment: ?- The risks and benefits of the procedure and the ?sedation options and risks were discussed with the ?patient. All questions were answered and informed ?consent was obtained. ?- Patient identification and proposed procedure ?were verified prior to the procedure by the ?physician and the rocket test fire worker. The procedure was ?verified in the procedure room. ?After obtaining informed consent, the colonoscope ?was passed under direct vision. Throughout the ?procedure, the patient's blood pressure, pulse, and ?oxygen saturations were monitored continuously. The ?colonoscope 528 was introduced through the anus and ?advanced to the cecum, identified by appendiceal ?orifice and ileocecal valve. The colonoscopy was ?performed without difficulty. The patient tolerated ?the procedure well. The quality of the bowel ?preparation was good. ? Findings: ? The terminal ileum appeared normal. ? The colon (entire examined portion) appeared normal. Biopsies for ? histology were taken with a cold forceps from the right colon for ? evaluation of microscopic colitis. ? The ascending colon appeared normal, evaluated several times, including ? retroflexion views and no residual polyp was seen. ? Impression: ? - The examined portion of the ileum was normal. ?- The entire examined colon is normal. Biopsied for ?microscopic colitis. ?- The ascending colon is normal. Recommendation: ? - Await biopsy results. ?- We would be happy to see the patient in GI clinic ?for further evaluation of chronic diarrhea - trial ?of cholestyramine may be warranted given diarrhea ?dating back to idania. ?- Repeat colonoscopy in 3 years. ? Nando Weber DO NANDO WEBER DO 10/16/2024 11:33:02 AM I was physically present for the entire viewing portion of the exam. NANDO WEBER DO Number of Addenda: 0 Note Initiated On: 10/16/2024 10:58 AM Scope Withdrawal Time: 0 hours 7 minutes 28 seconds Total Procedure Duration: 0 hours 14 minutes 1 second Estimated Blood Loss: ? Estimated blood loss: none. Scope In: 11:09:30 AM Scope Out: 11:23:31 AMRADIOLOGY RESULTSSpecimen (Source)Anatomical Location / LateralityCollection Method / VolumeCollection TimeReceived Time10/16/2024 10:58 AM CDT Narrative Authorizing ProviderResult TypeResult StatusJaime João MDPROCEDURESFinal ResultPerforming OrganizationAddressCity/State/ZIP CodePhone Number RADIOLOGY RESULTS from Last 3 Months or Most Recently Relevant to Health Maintenance Insurance Care Teams Team MemberRelationshipSpecialtyStart DateEnd Tg Rouse DO [address] [place] [address] PCP - GeneralFamily Practice10/05/24
--- OUTSIDE RECORDS SUMMARY | 2025-03-05 00:20 | XMS_ITS | Encounter Summary ---
Author Organization [facility] Address [address] [place] [address] Phone Care Team Providers Care Ibm Bpm Developer Name Role Phone Tg Rouse DO Primary Care Provider Encounter Details DateTypeDepartmentCare Team (Latest Contact Info)Ykdktuxurgx85/22/2025Results Follow-Up [facility] [address] [place] [address] Silvia Rey RN [address] [place] [address] Social History Tobacco UseTypesPacks/DayYears UsedDateSmoking Tobacco: YghmcwHxqxiiilcs559.3 08/12/1970 - 12/15/1984Smokeless Tobacco: NeverAlcohol UseStandard Drinks/Week CommentsNot Currently1 (1 standard drink = 0.6 oz pure alcohol)1-2 drinks at mostCommentsUnknownSex and Gender InformationValueDate RecordedSex Assigned at BirthNot on fileLegal WmcEiqgib07/14/2023 10:43 AM ESTGender IdentityNot on fileSexual OrientationNot on filedocumented as of this encounter Plan of Treatment DateTypeDepartmentCare Team (Latest Contact Info)Apoqsgaqrcs63/01/2026Orders Only [facility] [address] [place] [address] Dallas Caban MD [address] [place] [address] Chronic kidney disease stage 4 (HCC)03/18/2025 1:00 PM CSTOffice Visit [facility], [place] [address] Dallas Caban MD [address] [place] [phone] documented as of this encounter Visit Diagnoses Not on filedocumented in this encounter Care Teams Team MemberRelationshipSpecialtyStart DateEnd Date Tg Rouse DO [address] [place] [address] PCP - GeneralFamily Nwenokyz96/18/24documented as of this encounter
--- OUTSIDE RECORDS SUMMARY | 2025-03-05 00:20 | XMS_ITS | Clinical Summary ---
Author Organization [facility] [facility] Address [facility] [place] [address] Care Team Providers Care Can Sterilizer Name Role Phone Tana Michel MD Unavailable [phone] Tg Rouse DO Primary Care Provider [phone] Allergies Active AllergyReactionsCriticalityNoted DateCommentsAcyclovir*UnknownLow 01/04/20230881HkdfgodzNeusz15/28/2006spirinOther - Describe In Comment Field 06/08/2005 Gums felt swollen HcdfhvjRpoqgxroomwq83/11/2021ulfamethoxazole-YtndlgayheqdAakll92/28/2006Banana TmodgplRuuzmqaweuiz12/11/2021Hymenoptera Allergenic ExtractOther - Describe In Comment Field06/08/2005 Lips felt tingly; tongue felt odd/hot Bee Venom Protein (Honey Bee)Throat Swelling/QzocbkzFfuw22/24/2023iprofloxacin 06/08/2005 Eye pain-known Cipro side effect ZikgapzpyabPwet07/21/0824UepfakjxsMeftm65/24/5194Cahjayrwprtprbiwgor59/03/2007 Intolerance, weakness Nhvztrfspci67/08/2007 Reaction - skin ulcerations HydroxyureaOther - Describe In Comment Field10/19/2006 Reaction - skin ulcerations GscjqidCyvvudwx58/11/5512FtsgsylkuxMghnw82/03/6506YnpapmasllQpmoq51/14/2007 leg edema PeanutNausea And Drqzgyfw09/28/3460WysrxoPuhe73/11/9418PquoqdzhlpUmkl76/11/2021 Sulfa (Sulfonamide Antibiotics)09/30/2005Tetracyclines*EfrsidsKru46/15/2023 Venom-Honey BeeThroat Swelling/OycsjdxLkej86/16/2019 Medications MedicationSigDispense QuantityRefillsLast FilledStart DateEnd DateStatus fluticasone (50 mcg per actuation) nasal solution (FLONASE) Indications:Other allergic rhinitisInhale 2 Sprays into both nostrils once daily. 48 g 5:44 PM CST08/19/2016Active EPINEPHrine (EPIPEN) 0.3 mg/0.3 mL injection Indications:Allergy history, peanutsInject 0.3 mg intramuscular one time if needed (for anaphylaxis). 2 Each 04/29/2017 1:06 PM CST04/28/2017Active colchicine 0.6 mg tablet Indications:Gout of left wrist, unspecified cause, unspecified chronicityStart when onset of gout symptoms with 2 tabs po and repeat 1 tab 1 hour later then start 1 tab po qd up to 5-7 days until flare resolves 15 tablet 10/09/2018Active Additional Information Patient not taking.Reported on 02/27/2025 anagrelide (AGRYLIN) 0.5 mg capsule 10/31/2019Active Clobetasol Propionate-Emolnt 0.05 % cream Indications:Scleroderma (HC)APPLY TOPICALLY TO AFFECTED AREA(S) 2 TIMES DAILY. 60 g 08/17/2020ctive Graduated Compression Stockings Indications:Edema, unspecified typeFor personal use.Length : calf Strength:CCL2 2 Packet 12/01/2020ctive loperamide (Imodium A-D) 2 mg capsule Take 4mg by mouth with 1st loose stool, then 2mg with each subsequent loose stool. Max 16 mg in 24 kwe062ctive Saccharomyces boulardii (FLORASTOR) 250 mg capsule Take 250 mg by mouth.Active cholecalciferol (Vitamin D) 1,000 unit capsule Take 1 Capsule (1,000 units) by mouth once daily.07/27/2023ctive allopurinoL (ZYLOPRIM) 100 mg tablet Indications:Elevated uric acid in bloodpatient states she's on a decreasing dose 50mg bid uonkkfsdl85/28/2024ctive CPAP Indications:Obstructive sleep apneaRESMED CPAP (E0601) machine for home use at pressure: 4-10cmw, Choice of mask (A7030 or A7034) w/full face cushion (A7031) x1/mo, nasal cushion (A7032) x2/mo, or nasal pillows (A7033) x 2/mo; Length of Need: 99 months; Frequency of use: Daily 1 Each ctive dapagliflozin propanediol 10 mg tablet Take 10 mg by mouth once daily in the morning.5Active losartan (COZAAR) 25 mg tablet Indications:Hypertension, unspecified typeTake 1 Tablet (25 mg) by mouth once daily. 90 Tablet 5Active furosemide (LASIX) 20 mg tablet Indications:Edema, unspecified typeTake 1 Tablet (20 mg) by mouth two times daily. 180 Tablet 5Active metoprolol succinate (TOPROL XL) 50 mg sustained-release tablet Indications:PAF (paroxysmal atrial fibrillation) (HC),HypertensionTake 1 Tablet (50 mg) by mouth two times daily. 180 Tablet 5Active ezetimibe (Zetia) 10 mg tablet Indications:Mixed hyperlipidemiaTake 1 Tablet (10 mg) by mouth once daily. 60 Tablet 5Active atorvastatin (LIPITOR) 10 mg tablet Indications:Mixed hyperlipidemiaTake 1 Tablet (10 mg) by mouth once daily in the evening. 90 Tablet 5Active flecainide (TAMBOCOR) 50 mg tablet Indications:Irregular heart beatTake 1 Tablet (50 mg) by mouth every 12 hours. 180 Tablet 5Active methylPREDNISolone (Medrol ([place])) 4 mg tablet Indications:Inflammatory arthritisTake by mouth as instructed per packaging. 21 Tablet 5Active Active Problems ProblemNoted DateDiagnosed DateOsteopenia of multiple sites07/13/2024Pap smear for cervical cancer dktxxzgqe81/03/2022 Overview (09/29/2022): 08/2022 UNS/HPV negative. Provider Plan: No repeat needed. We will recheck her pelvic exam in 1 year or sooner if new symptoms. 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 Overview (10/26/2011): Diagnosis by chromosomes ACP (advance care planning)10/12/2011 Overview (04/07/2016): Patient has a HCD- see HCD from 04/01/16 JANES Mishra Advance Care Planning Educator [phone] LIN 07/08/2011 AHI-66007/26/2011CKD (chronic kidney disease) stage 4, GFR 15-29 ml/min04/05/2010Anemia, emsfvwjsxzj69/19/2008Circumscribed zybujhulntk96/26/2006 Tear film insufficiency, tugjnsmmhfu83/20/5105HIAU06/20/2005 Overview (06/04/2011): EGD 05/2011 Reactive gastropathy Edema08/10/2001VERTIGO, BENIGN PAROXYSMAL UOJZMTND37/19/2002DISORDER, MENOPAUSAL NOS04/24/2001HYPERCHOLESTEROLEMIA, PURE04/24/2001INSUFFICIENCY, VENOUS NOS 12/09/19996378BHLOEOUNYAJCRHBE71/27/2000Migraine with aura06/29/1999RHINITIS, ALLERGIC NOS05/13/1999Abnormal cardiovascular stress test Resolved Problems ProblemNoted DateDiagnosed DateResolved DateMultiple udxgvgucr52/05/2023 08/16/2022KD (chronic kidney disease) stage 4, GFR 15-29 ml/min09/28/2017 05/25/2018Examination of eyes and vmuwra79Sinus node dwjmvqrgwes741AF (atrial fibrillation) Overview (10/26/2011): Not on anticoagulation due to her CML Atrial gbtkuar32OSA on CPAP EQGRFLTVBIICDGUG36/12/1950JXLJIZZAHUYEZJOT27/12/200701/04/2007Multiple hequhizqz21GASTRITISHYPERLIPIDEMIA HX, FAMILY, DIABETES MQULGSUD42 BPWWFTNDSEPE26 Encounters DateTypeDepartmentCare VxgbImchxrcviyr07/19/2025Results Follow-Up [facility] [address] [place] [address] Tg Rouse DO 02/27/2025 2:55 PM CSTOffice Visit [facility] [address] [place] [address] Yonatan Liu MD Wrist Pain/problem (R wrist pain x1 week, increase in swelling/pain over the last few days - gout?)02/27/2025 11:45 AM CSTOrders Only [place] [address] [address]EZMAFORM[facility] [facility] [place] [address] Lab, [place] Lab02/27/2025 11:15 AM CSTAncillary Procedure [facility] [address] [place] [address] 02/27/2025Results Follow-Up [address] [place] [address] Yonatan Liu MD 02/27/20253432Whlcue12/16/2025Telephone [address] [address] Verona Staley PA Questions (Wrist pain. )02/25/2025 2:15 PM CSTAncillary Procedure [address] [place] [address] 02/25/2025Results Follow-Up [address] [address] Verona Staley PA 02/25/20255786Xlcezk21/11/2025 1:15 PM CSTOffice Visit [address] [address] Verona Staley PA Gout (left hand, mild swelling and tenderness)02/21/20252089Obzgej19/02/2025 Telephone [facility] [address] [place] [phone] Yonatan Birch MD Funbdghuhpc96/28/2025 12:54 PM HOSPITAL DIRECTOR - 02/08/2025 11:59 PM CSTHospital Encounter [facility] [address] [place] [address] Yonatan Birch MD PAF (paroxysmal atrial fibrillation) (HC)02/08/2025 12:50 PM CSTOrders Only [facility] [address] [place] [phone] Lab (/)02/08/20253073Zlhlwy90/26/2025Orders Only [facility] [address] [place] [address] Lupe Chairez RN <No scans attached>02/04/2025Orders Only [facility] Scanner 1 scan: (1-Ord) DERMATOLOGY CUSTOMER CARE REPRESENTATIVE, DENISHA COOPER, RT MIDLINE LOWER BACK, Telephone [facility] [address] [place] [phone] Yonatan Birch MD 01/23/2025 9:00 AM CSTOffice Visit [facility] [address] [place] [address] Yonatan Birch MD CV Electrophysiology Est (Annual follow up, review recent device check and echo. Started Farxiga, began having less energy and SOB since.)01/22/2025Travel 01/15/2025 1:00 PM CSTOffice Visit [facility] [address] [place] [phone] Ashu Peterson MD, PhD Consult (PAF (paroxysmal atrial fibrillation), mixed hyperlipidemia)01/15/2025 Telephone [facility] [address] [place] [address] Tg Rouse, DO Medication Ekxymif2501/15/20253501Npljok69/29/2025 12:55 PM CDTOffice Visit [facility] [address] [place] [address] Tg Rouse, DO Blood Pressure (Blood Pressure Check); Foot Problem (Callous on Right heel); Diabetes (Diabetic Check? Patient states I am not diabetic.)01/09/2025Travel 12/24/2024 11:40 AM CDTAncillary Procedure [facility] [address] [place] [address] 12/24/2024Travelfrom Last 3 Months Immunizations ImmunizationAdministration DatesNext DueAmb Influenza, Inactivated AIIV4 (Age 65+ Years) Preserv Free01/01/2020COVID-19 VACCINE SPIKEVAX (MODERNA 50MCG/0.5ML) 12YO+ PFS01/09/2025,5COVID-19 vaccine (Pfizer-BioNTech 30mcg/0.3mL) 12YO+ ASHLEY-SUCROSE PF, MDV2COVID-19 vaccine (Pfizer-BioNTech 30mcg/0.3mL) PF, MDV11/25/2020,05/27/2020,05/06/2020Hepatitis A (Adult) 04/16/2003Influenza A (H1N1), Ankuocfewrt06/09/2009Influenza A (H1N1), Inactivated (Age >=3 Years)01/20/2009Influenza Virus, Pzmmmnyhyjd76/05/2015 Influenza, High-dose Qeufghdjavc36/02/2024Influenza, High-dose Quadrivalent Odzrauurffr99/20/2023Influenza, IIV3 (Age >=3 years)11/25/2015,11/27/2011, 12/11/2008,01/10/2001Influenza, GKC103,12/01/2020,01/01/2020,11/29/2018, 12/15/2017,11/30/2016,12/04/2015,12/12/2014,11/27/2011,01/20/2009Influenza, IIV4 (=>6mos) MDV11/30/2016Influenza, Inactivated AIIV4 (Age 65+ Years) Preserv Free 12/09/2021,12/01/2020Influenza, Inactivated IIV3 (Age 65+ Years) Preserv Free 01/09/2025,12/15/2017Pneumococcal Poly,23-Valent (Pneumovax)09/28/2017, 01/10/2001Pneumococcal conj 13-Valent (Prevnar 13)07/25/2014RSV, Recombinant ADJ Reconstituted (Arexvy 120MCG/0.5mL)03/17/2023Td (Age >=7 Years)03/25/2017, 09/08/2000Tdap104/27/2006 Family History Medical HistoryRelationNameCommentsOtherBrotherlazy eyeHypertensionFatherUnknown Fathermacular degenerationDiabetesMotherGeneticOtherMother: AODM, ? hyst for cervical CA or dysplasia in her 40s, thyroid dz--hyperthyroid, hyperchol~Father: HTN (onset 80s), macular degeneration, some skin CA~GrPrs: MGF: AODM; PGM: HTN; MGM: Parkinson's~Sibs: detached retinas, skin CA (not melano*Hypertension Paternal GrandmotherOtherSisterretinal detachmentCancer-breastNo Family History Cancer-ovarianNo Family HistoryRelationNameStatusCommentsBrotherFatherMother OtherPaternal GrandmotherSister Social History Tobacco UseTypesPacks/DayYears UsedDateSmoking Tobacco: IeixwtPuwnvhysuz6Kqyg: 1983Smokeless Tobacco: Never Tobacco Cessation:Counseling Given: Yes Comments:quit yo4851 Alcohol UseStandard Drinks/WeekCommentsYes2 (1 standard drink = 0.6 oz pure alcohol)or lessPHQ-2AnswerDate RecordedPHQ-2 TOTAL KXIHI313Social ConnectionsAnswerDate RecordedDo you often feel lonely or isolated from those around you?Financial Resource StrainAnswerDate RecordedDifficulty of Paying Living Xqykjgbj750/14/2025Difficulty of Paying Living ExpensesNot on file 06/25/2024Food InsecurityAnswerDate RecordedDo you worry your food will run out before you are able to buy more?Transportation NeedsAnswerDate RecordedDoes lack of transportation keep you from medical appointments?1 07/11/2024Does lack of transportation keep you from work, meetings or getting things that you need?Housing StabilityAnswerDate RecordedWhat is your housing situation today?UtilitiesAnswerDate RecordedDo you have trouble paying for utilities (for example, heat, electricity, water, phone)?1 07/11/2024CommentsNoSex and Gender InformationValueDate RecordedSex Assigned at BirthNot on fileLegal JskHmlvyl40/14/2013 5:25 AM CSTGender Identity Not on fileSexual OrientationNot on fileOccupationIndustryJob Start DateJob End DateNot on fileNot on fileNot on fileNot on file Obstetrics History GravidaParaTermPretermABIABSABEctopicMultipleLivingLive [id number] OutcomeGATotal LaborLabor/2nd/3ylKnwftzIjvTexhXjllIVELloB1O7IprhKtgrILMKmmlMqse Last Filed Vital Signs Vital SignReadingTime TakenCommentsBlood Susyezzx693/7602/27/2025 11:57 AM HOSPITAL DIRECTOR Pgapi296702/27/2025 11:57 AM TWAQeqidgjogaq30 ??C (98.6 ??F)07/31/2024 1:14 PM CDT Respiratory Cjxy933107/31/2024 1:00 PM CDTOxygen Mzxdfafdwj95%02/27/2025 11:57 AM CSTInhaled Oxygen Concentration--Dyktwb063.1 kg (225 lb)02/27/2025 11:57 AM HOSPITAL DIRECTOR Nsniox228.4 cm (5' 5.5)01/23/2025 8:19 AM CSTBody Mass Index36.8701/23/2025 8:19 AM HOSPITAL DIRECTOR Plan of Treatment DateTypeDepartmentCare Team (Latest Contact Info)Hpymdtyedaz36/29/2025 10:10 AM CSTOffice Visit [facility] [address] [place] [address] Tg Rouse DO [address] [place] [address] 03/12/2025 1:00 PM CSTOffice Visit [facility] [address] [place] [address] Eligio Fraser MD [address] [place] [address] 03/19/2025 11:25 AM CSTOffice Visit [facility] [address] [place] [address] Tg Rouse, [address] [place] [address] 03/26/2025 1:30 PM CSTAppointment [facility] [address] [place] [address] 04/26/2025ardiac Device Check [facility] [phone] Health MaintenanceDue DateLast DoneCommentsCOVID-19 vaccine series ( season), 07/11/2024, 01/14/2024, Additional history exists Depression screening for age 12+, 07/11/2024, 01/13/2022, Additional history existsMedicare Wellness for age 65+, 01/13/2022, 09/28/2017Mammogram for age 45-75, 12/20/2023, 12/17/2022, Additional history existsBMI (ht and wt on same day) for age 18+ , 10/08/2024, 07/11/2024, Additional history existsTetanus auewict43, 02/24/2007, 09/08/2000Colonoscopy through age 75 , 11/27/2018, 11/27/2018, Additional history existsLipids for age 45-75, 10/08/2024, 07/11/2024, Additional history existsHepatitis C screening for age 18-03Gvztpdnbi20/21/2017, 10/22/2011 Pneumococcal series for age 50+Ghlfixpxf39/18/2018, 07/25/2014, 01/10/2001RSV vaccine for adults or zhndvshosXhhiaeygr62/04/2024DEXA/DXA scan for age 65+ Dxzurwhmt90/30/2025, 12/15/2017, 03/02/2012, Additional history existsInfluenza OuhqugxEwqkmuhej02/29/2025, 01/14/2024, 12/09/2021, Additional history exists Hepatitis B series for 19+Aged OutNo longer eligible based on patient's age to complete this topicZoster (shingles) series for age 50+Discontinued Goals GoalPatient Goal TypeAssociated ProblemsRecent ProgressPatient-Stated?Author BLOOD PRESSURE - MAINTAINS BP less than 140/90 Blood PressureNoRiAydee sawyer MD Medical Devices ImplantedTypeAreaManufacturerDevice IdentifierShelf Expiration DateModel / Serial / LotStandard Pacemaker-12/09/2011 Implanted:12/09/2011 by Gurjit Cruz MD (Quantity not on file)Standard PacemakerMedtronicADDRL1 / [id number] / Procedures Procedure NamePriorityDate/TimeAssociated DiagnosisCommentsUS VENOUS UPPER EXTREMITY CFBKKtxphsf29/17/2025 1:34 PM HOSPITAL DIRECTOR Swollen arm URIC JKKZElciauw76/17/2025 11:23 AM HOSPITAL DIRECTOR Acute pain of left wrist XR HAND 3 VIEWS ILNTBQEX25/15/2025 2:17 PM HOSPITAL DIRECTOR Left hand pain CREATININE,TUWNHUofxeea83/28/2025 2:07 PM HOSPITAL DIRECTOR ZUFCBQZTDTCgnwuoi68/28/2025 12:59 PM HOSPITAL DIRECTOR CKD (chronic kidney disease) stage 4, GFR 15-29 ml/min (HC) LIPID PANEL W REFLEX MEASURED DQAHkuxusj39/28/2025 12:59 PM HOSPITAL DIRECTOR Mixed hyperlipidemia SCAN-OPERATIVE/PROCEDURE GBYTTK8902/04/2025 12:00 AM HOSPITAL DIRECTOR EKG 12 QTSJNkfnz75/12/2025 8:21 AM HOSPITAL DIRECTOR Routine general medical examination at a [facility] PAF (paroxysmal atrial fibrillation) (HC) HEMOGLOBIN A1C MONITORING (POCT)Mplkitz6501/09/2025 12:37 PM CDT Prediabetes XR MAMMO MITCHELL BILAT YWXDBKYuyhbid99/13/2025 11:54 AM CDT Visit for screening mammogram XR DXA BONE DENSITY 2 SITES AXIAL AND 1 SITE YODLFLXJQNZwzymvz42/30/2025 3:01 PM CDT Asymptomatic postmenopausal state SCAN-ZMLKTKLNFRC06/04/2024 11:30 AM HOSPITAL DIRECTOR ANTI ORDNreuere89/21/2017 1:34 PM CDT Need for hepatitis C screening test from Last 3 Months or Most Recently Relevant to Health Maintenance Results * US VENOUS UPPER EXTREMITY LEFT (02/27/2025 1:34 PM HOSPITAL DIRECTOR)Anatomical Region LateralityModalityARMS, ARM LUltrasoundSpecimen (Source)Anatomical Location / LateralityCollection Method / VolumeCollection TimeReceived Time02/27/2025 2:12 PM HOSPITAL DIRECTOR Impressions 02/27/2025 2:12 PM HOSPITAL DIRECTOR No evidence for DVT in the left upper extremity and neck venous system. Dictated by Jonn Ospina MD @ 02/27/2025 2:12:39 PM (Electronically Signed) Narrative 02/27/2025 2:12 PM HOSPITAL DIRECTOR For Patients: As a result of the Century Cures Act, medical imaging exams and procedure reports are released immediately into your electronic medical record. You may view this report before your referring provider. If you have questions, please contact your health care provider. INDICATION: Swollen arm COMPARISON: 08/14/2015 TECHNIQUE: Left upper extremity and neck venous ultrasound performed as well as ultrasound of right internal jugular vein including wilburn scale/2D, color Doppler, and spectral Doppler imaging including spectral waveform analysis. ?? FINDINGS: The internal jugular, innominate, subclavian, axillary, basilic, cephalic, and brachial veins were patent and negative for thrombus. ??The right internal jugular vein was also patent and negative forthrombus where seen. ??Remainder negative. ?? Procedure Note Jonn Ospina MD - 02/27/2025 For Patients: As a result of the 21st Century Cures Act, medical imagingexams and procedure reports are released immediately into your electronicmedical record. You may view this report before your referring provider.If you have questions, please contact your health care provider. INDICATION: Swollen arm COMPARISON: 08/14/2015 TECHNIQUE: Left upper extremity and neck venous ultrasound performed as well asultrasound of right internal jugular vein including wilburn scale/2D, colorDoppler, and spectral Doppler imaging including spectral waveformanalysis. FINDINGS: The internal jugular, innominate, subclavian, axillary, basilic, cephalic,and brachial veins were patent and negative for thrombus. The rightinternal jugular vein was also patent and negative for thrombus whereseen. Remainder negative. IMPRESSION: No evidence for DVT in the left upper extremity and neck venous system. Dictated by Jonn Ospina MD @ 02/27/2025 2:12:39 PM (Electronically Signed) Authorizing ProviderResult TypeResult StatusWilliahollie Liu MDUSFinal Result * (ABNORMAL) URIC ACID (02/27/2025 11:23 AM HOSPITAL DIRECTOR)ComponentValueRef RangeTest MethodAnalysis TimePerformed AtPathologist SignatureURIC ACID11.6(H)2.5 - 7.0 mg/dL02/28/2025 3:38 AM CSTQUEST DIAGNOSTICSComment:Therapeutic target for gout patients: <6.0 mg/dLSpecimen (Source)Anatomical Location / Laterality Collection Method / VolumeCollection TimeReceived TimeBloodBLOOD SPECIMEN / UnknownQuest Collect / Lmlmoqb1902/27/2025 11:23 AM CST02/27/2025 11:23 AM HOSPITAL DIRECTOR Narrative Authorizing ProviderResult TypeResult StatusTg Rouse DOCHEMISTRYFinal ResultPerforming OrganizationAddressCity/State/ZIP CodePhone Number [facility] [address] [place] [address], * XR HAND 3 VIEWS LEFT (02/25/2025 2:17 PM HOSPITAL DIRECTOR)Anatomical RegionLaterality ModalityHANDS, HAND LComputed RadiographySpecimen (Source)Anatomical Location / LateralityCollection Method / VolumeCollection TimeReceived Time02/25/2025 2:26 PM HOSPITAL DIRECTOR Narrative 02/25/2025 2:26 PM HOSPITAL DIRECTOR For Patients: As a result of the Cures Act, medical imaging exams and procedure reports are released immediately into your electronic medical record. You may view this report before your referring provider. If you have questions, please contact your health care provider. Indication: Left hand pain Technique: Left hand 3 views. Comparison: 04/11/2017 Findings: Osteopenia. Mild joint space narrowing and spurring at the 1st carpometacarpal joint and triscaphe joint. Mild degenerative changes at the long finger distal interphalangeal joint and little finger distal interphalangeal joint. No fracture. Impression: Mild degenerative joint disease. Dictated by Jonn Ospina MD @ 02/25/2025 2:26:24 PM (Electronically Signed) Procedure Note Jonn Ospina MD - 02/25/2025 For Patients: As a result of the Cures Act, medical imagingexams and procedure reports are released immediately into your electronicmedical record. You may view this report before your referring provider.If you have questions, please contact your health care provider. Indication: Left hand pain Technique: Left hand 3 views. Comparison: 04/11/2017 Findings: Osteopenia. Mild joint space narrowing and spurring at the 1stcarpometacarpal joint and triscaphe joint. Mild degenerative changes atthe long finger distal interphalangeal joint and little finger distalinterphalangeal joint. No fracture. Impression: Mild degenerative joint disease. Dictated by Jonn Ospina MD @ 02/25/2025 2:26:24 PM (Electronically Signed) Authorizing ProviderResult TypeResult StatusAbby Loretta Staley PAGENERAL IMAGINGFinal Result * (ABNORMAL) CREATININE,ISTAT (02/08/2025 2:07 PM HOSPITAL DIRECTOR)ComponentValueRef Range Test MethodAnalysis TimePerformed AtPathologist SignatureCREATININE, POCT2.10 (H)0.57 - 1.11 mg/dL02/08/2025 3:00 PM CSTB[facility] LAB[facility]ORY-CENTRAL LABORATORYComment:Caution: Patients taking Hydroxyurea have falsely increased iStat Creatinine results. Verify creatinine results ordering a Creatinine (70217.2)eGFR24(L)>90 mL/min/1.35z07002/08/2025 3:00 PM [facility]ITALCENTRAL LABORATORYComment:As of 05/26/2021, eGFR is calculated by the CKD-EPI creatinine equation without race adjustment. eGFR can be influenced by muscle mass, exercise, and diet. The reported eGFR is an estimation only andis only applicable if the renal function is stable.Specimen (Source)Anatomical Location / LateralityCollection Method / VolumeCollection TimeReceived TimeBloodBLOOD SPECIMEN / Dqeuqmz2202/08/2025 2:07 PM CST02/08/2025 3:00 PM HOSPITAL DIRECTOR Narrative Authorizing ProviderResult TypeResult StatusWilliam Slade Birch MD CHEMISTRYFinal ResultPerforming OrganizationAddressCity/State/ZIP CodePhone Number [facility] [address] [address], * (ABNORMAL) LIPID PANEL W REFLEX MEASURED LDL (02/08/2025 12:59 PM HOSPITAL DIRECTOR) ComponentValueRef RangeTest MethodAnalysis TimePerformed AtPathologist SignatureCHOLESTEROL,NLXCF980(H)100 - 199 mg/dL02/08/2025 1:53 PM [facility] LABORATORYComment: Cholesterol, Total Reference Ranges Desirable <200 mg/dL Borderline 200-239 mg/dL High >=240 mg/dL NQCOKKSQBAOLQ468(H)<150 mg/dL02/08/2025 1:53 PM [facility] CENTRAL LABORATORYHDL YANMGCNZFWC24>40 mg/dL02/08/2025 1:53 PM [facility] LABORATORYNON-HDL ESQBSVHANKF285(H)<145 mg/dl02/08/2025 1:53 PM [facility]ATORYCHOL/HDL RATIO6.25(H)<4.50 02/08/2025 1:53 PM [facility]ORATORYLDL CHOLESTEROL 164(H)<=130 mg/dL02/08/2025 1:53 PM [facility]ORATORYVLDL EGGEJJEUNWI28(H)<=30 mg/dL02/08/2025 1:53 PM [facility] LABORATORYPROVIDER ORDERED HTJVGQUGUUHE19/28/2025 1:53 PM HOSPITAL DIRECTOR [facility]ATORYSpecimen (Source)Anatomical Location / LateralityCollection Method / VolumeCollection TimeReceived TimeBloodBLOOD SPECIMEN / UnknownVenipuncture / Zipzpcn4502/08/2025 12:59 PM CST02/08/2025 1:21 PM HOSPITAL DIRECTOR Narrative Authorizing ProviderResult TypeResult StatusAshu Peterson MD, PhD CHEMISTRYFinal ResultPerforming OrganizationAddressCity/State/ZIP CodePhone Number [facility] [address] [address], * (ABNORMAL) CREATININE (02/08/2025 12:59 PM HOSPITAL DIRECTOR)ComponentValueRef RangeTest MethodAnalysis TimePerformed AtPathologist VzmqxobjapGXH87(L)>90 mL/min/1.73m2 02/08/2025 1:53 PM [facility] LABORATORYComment:As of 05/26/2021, eGFR is calculated by the CKD-EPI creatinine equation without race adjustment. ??eGFR can be influenced by muscle mass, exercise, and diet. ??The reported eGFR is an estimation onlyand is only applicable if the renal function is stable.CREATININE1.96(H)0.50 - 0.90 mg/dL02/08/2025 1:53 PM HOSPITAL DIRECTOR [facility] LABORATORYSpecimen (Source)Anatomical Location / LateralityCollection Method / VolumeCollection TimeReceived Time BloodBLOOD SPECIMEN / UnknownVenipuncture / Mpjvzxk8902/08/2025 12:59 PM HOSPITAL DIRECTOR 02/08/2025 1:21 PM HOSPITAL DIRECTOR Narrative Authorizing ProviderResult TypeResult StatusLupe Chairez RNCHEMISTRYFinal ResultPerforming OrganizationAddressCity/State/ZIP CodePhone Number [facility] [address] [address], * SCAN-OPERATIVE/PROCEDURE REPORT (02/04/2025 12:00 AM HOSPITAL DIRECTOR) Narrative Authorizing ProviderResult TypeResult StatusScannerOTHERFinal Result * EKG 12 LEAD (01/23/2025 8:21 AM HOSPITAL DIRECTOR)ComponentValueRef RangeTest MethodAnalysis TimePerformed AtPathologist SignatureInterpretationAtrial-paced rhythm with prolonged AV conduction Abnormal ECG When compared with ECG of 09-Nov-2023 11:31, MANUAL COMPARISON REQUIRED DATA IS UNCONFIRMED Ventricular Myqn15CRCEbspbw Ieok09QVRO-W Zaxdrmmo254ekICR Geuteuos146teYV265jk NWt397bkB Eaaz71mcugypiL Tpgn16vbrmsvfM Ocev72rexdtasIyksjtcn (Source)Anatomical Location / LateralityCollection Method / VolumeCollection TimeReceived Time 01/23/2025 8:21 AM CST01/23/2025 5:16 PM HOSPITAL DIRECTOR Narrative Authorizing ProviderResult TypeResult StatusYonatan SANTANA ORDFinal Result * HEMOGLOBIN A1C MONITORING (POCT) (01/09/2025 12:37 PM CDT)ComponentValueRef RangeTest MethodAnalysis TimePerformed AtPathologist SignaturePOC HEMOGLOBIN A1C5.6<6.0 % OF TOTAL HGB1 12:54 PM [facility]Comment: Any point of care results exhibiting inconsistency with the patient's clinical status should be repeated using a different testing method. Specimen (Source)Anatomical Location / LateralityCollection Method / Volume Collection TimeReceived TimeBloodBLOOD SPECIMEN / UnknownQuest Collect / Unknown 01/09/2025 12:37 PM CDT1 12:37 PM CDT Narrative Authorizing ProviderResult TypeResult StatusSiri Elsy Powellqra DOCHEMISTRYFinal ResultPerforming OrganizationAddressCity/State/ZIP CodePhone Number [facility] [address] [place] [address], [place] [phone] [facility] [address] [place] [address], [place] [phone] * XR MAMMO MITCHELL BILAT SCREEN (12/24/2024 11:54 AM CDT)Anatomical Region LateralityModalityBREASTS, Breast Left, Breast RightBilateralMammography Specimen (Source)Anatomical Location / LateralityCollection Method / Volume Collection TimeReceived Time Impressions 12/26/2024 6:24 PM CDT There is no radiographic evidence for malignancy. Recommend annual mammograms. MAMMOGRAM ASSESSMENT: ??ACR 1 Negative PATIENTS: You will also receive a letter with your examination results in an easy to read format. ??If you have questions about your results, please contact your referring provider. Narrative 12/26/2024 6:24 PM CDT For Patients: As a result of the Century Cures Act, medical imaging exams and procedure reports are released immediately into your electronic medical record. You may view this report before your referring provider. If you have questions, please contact your health care provider. XR MAMMO MITCHELL BILAT SCREEN [[id number]] CLINICAL HISTORY: ??This is an asymptomatic 74 y.o. patient. INDICATION FOR EXAM: Mammogram Screening. TECHNIQUE: CC and MLO views were obtained. ??This study was evaluated with the assistance of Computer-Aided Detection. Breast Tomosynthesis was used in interpretation. COMPARISON FILM: Yes 12/20/23 [employer] 12/17/22 [employer] FINDINGS: ??There are scattered areas of fibroglandular density. There are no dominant masses, suspicious micro calcifications or areas of architectural distortion. Authorizing ProviderResult TypeResult StatusSiri Elsy Shaqra DOMAMMOFinal Result * (ABNORMAL) XR DXA BONE DENSITY 2 SITES AXIAL AND 1 SITE PERIPHERAL (07/11/2024 3:01 PM CDT)Anatomical RegionLateralityModalityLUMBAR SPINEOtherSpecimen (Source)Anatomical Location / LateralityCollection Method / VolumeCollection TimeReceived Time Impressions 07/13/2024 4:42 PM CDT Osteopenia. RECOMMENDATIONS: The National Osteoporosis Foundation recommends pharmacologic treatment for patients with T-scores of -2.5 or less, patients with prior history of fragility fractures, or patients with 10-year probability of greater than 3% at hips or greater than 20% of suffering major osteoporotic fractures. Recommend continued optimization of calcium and vitamin D intake through dietary means and/or supplementation and regular exercise. Repeat scan recommended in 3-5 years. Emily Gillette PA-C [facility] 07/13/2024 ?? Narrative 07/13/2024 4:42 PM CDT For Patients: Results are automatically released to your [employer] ([employer]) account once available, in compliance with federal regulations. This means that you may see your results before your provider has had a chance to review them. Please allow 2-3 business days for your provider to comment on the results. XR DXA Bone Mineral Density (BMD) EXAM LOCATION: [address] [address] PATIENT NAME: Shilpi Pizarro DATE OF : 1950 EXAM DATE: 07/11/2024 REQUESTING PROVIDER: Tg Rouse DO GENDER AT : female HEIGHT: 5' 5.43 (07/11/2024) WEIGHT: ??216 lb 12.8 oz (07/11/2024) MENOPAUSAL STATUS: Postmenopausal RACE/ETHNICITY: White RISK FACTORS: Cancer Treatment, Renal Failure, Smoking (prior), White Race, and Estrogen Therapy CURRENT MEDICATION FOR BONE LOSS: NONE INDICATION: Post-Menopause COMPARISON DATE(S): 2018 DXA scans are compared to prior studies for a patient only when the two (or more) studies were performed on the same scanner. It is not possible to compare data generated on one scanner to data from another because there are not standards in DXA equipment. This applies even if the two scanners are made by the same security inspector. PROCEDURE: Dual-energy x-ray absorptiometry performed with routine technique. Reporting is completed in the form of a T-score. The T-score represents the standard deviation from peak bone mass based on young healthy adult. A Z-score is used for diagnosis in premenopausal women, and for men under the age of 50. FINDINGS: RESULT LUMBAR SPINE L2-L3(L1 &L4) BMD: 1.190 g/cm2 T-Score: - 0.1 Z-Score: + 0.5 Change from prior in 2011: ??Decrease 9.4%. RESULTS FEMUR Left femoral neck BMD: 0.914 g/cm2 T-Score: - 0.9 Z-Score: + 0.2 Change from prior in 2018: ??Decrease 8.7%. Right femoral neck BMD: 0.883 g/cm2 T-Score: - 1.1 Z-Score: + 0.0 Change from prior in 2018: ??Decrease 11.8%. Left hip BMD: 0.839 g/cm2 T-Score: - 1.3 Z-Score: - 0.5 Change from prior in 2018: ??Decrease 7.0%. Right hip BMD: 0.860 g/cm2 T-Score: - 1.2 Z-Score: - 0.3 Change from prior in 2018: ??Decrease 5.2%. RESULT FOREARM Left Forearm distal radius BMD: 0.768 g/cm2 T-Score: - 1.2 Z-Score: + 0.8 Change from prior: ??None WHO criteria: Normal: T-score at or above -1 SD Osteopenia: T-score between -1.1 and -2.4 SD Osteoporosis: T-score at or below -2.5 SD FRAX RISK CALCULATION (USED FOR OSTEOPENIA ONLY): 10-year probability of major osteoporotic fracture: 8.9%. 10-year probability of hip fracture: 1.1%. Authorizing ProviderResult TypeResult StatusSiri Elsy PACKEXAFinal Result * SCAN-COLONOSCOPY (01/16/2024 11:30 AM HOSPITAL DIRECTOR) Narrative Procedure Note JoãoStepehn Atkinson MD - 01/16/2024 10:22 AM CST [facility] [address], [address], [place] [address] Patient Name: Shilpi Pizarro Gender: Female Exam Date: 01/16/2024 Visit Number: [id number] Age: 73 Years Date of : 1950 Attending MD: Stephen Mcqueen MD Medical Record#: [id number] Procedure: Colonoscopy Indications: Previous adenomatous polyp(s) Family history of colon cancer in patient's sister. Age diagnosed: 60and older. Referring MD: Tg Rouse DO Primary MD: Tg Rouse DO Medications: Admitting Medications: 0.9% Normal Saline at TKO Intra Procedure Medications: Patient received monitored anesthesia care. Complications: No immediate complications Procedure: An examination of the heart and lungs was performed and found to be within acceptable limits. . The patient was therefore deemed a reasonablecandidate for endoscopy and sedation. The risks and benefits of the procedure were explained to the patient.After obtaining informed consent, the patient received monitoredanesthesia care and I passed the scope without difficulty via the rectum to the cecum. The appendiceal orificeand ic valve were identified. The quality of the prep was good(Golytely). This was a complete examination throughout the entire colon. Findings: Polyp location: ascending colon. Quantity: 4. Size: 10 mm, 3 mm, 8 mm,11-15 mm. Polyp shape: sessile. Maneuver: piecemeal polypectomy was performed with a cold snare. Removal: complete. Retrieval: complete. Bleeding: none. Polyp location: descending colon. Quantity: 1. Size: 10 mm. Polypshape: sessile. Maneuver: polypectomy was performed with a . Removal: complete. Retrieval: complete. Bleeding: none. Piecemeal resection in the distal ascending colon Hemorrhoids. Internal hemorrhoids without bleeding. Likely scar in the rectum where previous polypectomy occurred Location. Remainder of the exam is normal. Impression: Colorectal polyps Hemorrhoids, internal MD impression comments: We will wait for the pathology to return. Wewill need a repeat colonoscopy in the next 6 to 12 months as we had totake the large polyp out in pieces. I will let you know when thepathology returns if it should be 6 or 12 months. Preliminary Plan: The patient and their physician will receive a copy of the pathologyreport as well as pathology-based recommendations for future screening orsurveillance. Pathology Results: A: COLON, ASCENDING, POLYPS: 1. Sessile serrated adenomas (4) 2. Negative for overt dysplasia 3. Per the colonoscopy report: a. Polyp sizes: 3 mm, 8 mm, 10 mm and 11-15 mm b. Resection: Complete c. Retrieval: Complete B: COLON, DESCENDING, POLYP: 1. Sessile serrated adenoma 2. Negative for overt dysplasia 3. Per the colonoscopy report: a. Polyp size: 10 mm b. Resection: Complete c. Retrieval: Complete MICROSCOPIC A: Performed B: Performed Electronically signed by: Lam Mortensen MD Interpreted at [facility], [address] [place] [phone] Orders Diagnostics: Procedure Comments Timeframe Assessment Colonoscopy 1hr slot. joão 6 Months K63.5 Instruction(s)/Education: Instruction/Education Timeframe Assessment Colon Cancer Prevention K63.5 Colon Polyps K63.5 Hemorrhoids K63.5 Final Plan: Repeat colonoscopy in 6 months for Assess polypectomy site. We will attempt to contact you at appropriate intervals via U.S. mail. Wemay not be able to find you or contact you at that time, therefore youshould know that the responsibility for following our recommendation restswith you. If you don't hear from us at the time your procedure is due,please contact our office to schedule an appointment. If your contactinformation should change, please contact our office so that we can updateyour record. Additional Comments: You did meet criteria for a syndrome called sessile serrated polyposissyndrome. This increases your risk of polyp formation and thereforecancer. We will repeat colonoscopy in 6-month to ensure there is noresidual polyps left in the colon. _Electronically signed by: Stephen Mcqueen MD 01/16/2024 cc: Tg Rouse DO cc: Tg Rouse DO Authorizing ProviderResult TypeResult StatusStephen Moyer MDOTHERFinal Result * ANTI HCV (09/01/2016 1:34 PM CDT)ComponentValueRef RangeTest MethodAnalysis TimePerformed AtPathologist SignatureHEPATITIS C ANTIBODYNon-Reactive Non-Wzjvsbay46/21/2017 8:29 PM CDTALRED [facility]KE [facility] Specimen (Source)Anatomical Location / LateralityCollection Method / Volume Collection TimeReceived TimeBloodBLOOD SPECIMEN / UnknownVenipuncture / Jsxyzey9809/01/2016 1:34 PM CDT09/01/2016 1:34 PM CDT Narrative [facility]-C[facility]AL LABORATORY - 09/01/2016 8:29 PM CDT Antibodies to HCV not detected; does not exclude the possibility of exposure to HCV. Authorizing ProviderResult TypeResult StatusAydee DEL CIDEND OUTSFinal ResultPerforming OrganizationAddressCity/State/ZIP CodePhone Number [facility] LAB[facility]ORY [address] [place] [address], [place] from Last 3 Months or Most Recently Relevant to Health Maintenance Insurance * Guarantor: Shilpi Pizarro TypeRelation to PatientDate of PhoneBilling AddressPersonal/CxrkzdEfte36[birth year][id number] [place] [phone] * Guarantor: Shilpi Pizarro TypeRelation to PatientDate of PhoneBilst. francis hospital AddressWorkers WnweUfkx60/13/1951 [address] [place] [phone] Advance Directives TypeDate RecordedPatient RepresentativeExplanationHealthcare Directive04/01/2016 12:00 AM04/01/16 * Full Code (Latest Code Status on File) Date ActivatedDate InactivatedComments03/24/2016 9:20 AM03/24/2016 4:26 PM * Full Code Date ActivatedDate InactivatedComments12/09/2011 10:57 AM12/10/2011 12:55 PM * Full Code Date ActivatedDate InactivatedComments10/12/2011 2:07 AM10/13/2011 8:19 PM Care Teams Team MemberRelationshipSpecialtyStart DateEnd Date Tg Rouse DO [address] [place] [address] [facility] - [facility]04/19/23 Tana Michel MD [address] [facility] [id number] Oncology06/29/22
--- OUTSIDE RECORDS SUMMARY | 2025-03-05 00:20 | XMS_ITS | Clinical Summary ---
Author Organization [facility] [place] Address [address] [facility] [place] [address] Phone Care Team Providers Care Grain Ii Farmworker Name Role Phone Tg Rouse DO Primary Care Provider [phone] Allergies Active AllergyReactionsCriticalityNoted DateCommentsAcyclovirOther (see comments)Low3753FtivootkmlWvabpvxm66/14/2007 leg edema AspirinOther (see comments)06/08/2005 Gums felt swollen AvocadoOther (see comments)03/24/20202847Qupyro68/anana Extract Allergy Skin TestOther (see comments)03/24/2020ee KjgnlZmfbokwqCtam03/12/2012Ciprofloxacin NihjCih8506/08/2005 Eye pain-known Cipro side effect Ciprofloxacin CvgUcuuQox86/04/3325AgbzzrtuawxEohfZcg35/21/2007DasatinibSwelling 01/04/20234712Gnxggumqzlungmzppix54/03/2007 Intolerance, weakness Navvkfyxyey08/08/2007 Reaction - skin ulcerations LisinoprilOther (see comments)11/14/2012Naproxen HqfforSjznp91/12/2012Peanut- Containing Drug ProductsGI intolerance,Nausea And Amrupfzs73/28/2006Shrimp NuzhgonUlqoVgu58/11/2021trawberry ZmbcimeNzkyPmd26/11/2021ulfa Antibiotics 10/24/2011Sulfamethoxazole-WbediwcqzhcuEqjjn78/28/2006TilactaseDiarrhea 03/24/2020Wasp Venom ProteinOther (see comments)06/08/2005 Lips felt tingly; tongue felt odd/hot Medications MedicationSigDispense QuantityRefillsLast FilledStart DateEnd DateStatus anagrelide (AGRYLIN) 0.5 MG capsule Take 0.5 mg by mouth 1 (one) time each day Alternating between 0.5 tablets and 1 tablet every dfzitlqg09/19/2020Active flecainide (TAMBOCOR) 50 MG tablet Take 50 mg by mouth in the morning and 50 mg in the evening.10/24/2011ctive fluticasone (FLONASE) 50 MCG/ACT nasal spray Administer 2 sprays into affected nostril(s) in the morning.08/19/2016Active furosemide (LASIX) 20 MG tablet Take 20 mg by mouth in the morning and 20 mg in the evening.08/16/2022ctive loperamide (IMODIUM) 2 MG capsule Take 4 mg by mouth if needed for kiohwfbd08/12/2022ctive metoprolol succinate XL (TOPROL XL) 50 MG 24 hr tablet Take 50 mg by mouth in the morning and 50 mg in the evening.10/24/2011ctive saccharomyces boulardii (FLORASTOR) 250 MG capsule Take 250 mg by mouth in the morning and 250 mg in the evening.Active cholecalciferol (VITAMIN D-3) 125 MCG (5000 UT) capsule Take 2,000 Units by mouth in the morning.07/27/2023ctive losartan (COZAAR) 25 MG tablet Take 12.5 mg by mouth 1 (one) time each dayActive acetaminophen (TYLENOL) 325 MG tablet take 2 tablet by oral route every 6 hours as xdigon2501/16/2024ctive Dapagliflozin Propanediol (Farxiga) 10 MG tablet Take 10 mg by mouth 1 (one) time each day in the morning 90 tablet 5Active Active Problems ProblemNoted DateDiagnosed DateProteinuria, not otherwise /13/2024 Deatumxkgdzg55/05/2673Eupaqvmdddyd97/13/2022H/O: gout10/01/2019Hypertensive chronic kidney disease with stage 1 through stage 4 chronic kidney disease, or unspecified chronic kidney qgososy5112/20/2018Hyperparathyroidism due to renal bourfokehpbqb25/09/2249Xtynazjlexm64/18/2018Paroxysmal atrial fibrillation 08/11/2016 Overview (06/17/2023): 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 Woods at [facility] H/O: cardiac pacemaker in situ12/09/2011Chronic myeloid leukemia without mention of having achieved kgbrtkwai78/14/2012 Overview (06/17/2023): Diagnosis by chromosomes Obstructive sleep apnea07/26/2011Chronic kidney disease stage nemia 07/31/2007Esophageal zxlvpp0907/31/2004 Overview (06/17/2023): EGD 05/2011 Reactive gastropathy Edema08/10/2001Pure cxeefrkzohnicflcwmyt92/11/2002Peripheral venous jvzyxaphpyinz04/27/2000 Resolved Problems ProblemNoted DateDiagnosed DateResolved DateAtrial oqqqmfu27 Encounters DateTypeDepartmentCare MrwyHwoyjxezrip10/22/2025Results Follow-Up [facility] Carolann Saini [facility] [address] [place] [phone] Silvia Rey RN 02/27/2025Telephone [facility] Carolann Saini [facility] [address] [place] [phone] Andrea Howell 12/20/2024 10:30 AM CDTClinical Support [facility] [place] [facility] [address] [place] [phone] [address] Chronic kidney disease stage 4 (HCC) (Primary Dx)from Last 3 Months Immunizations ImmunizationAdministration DatesNext DueInfluenza Split High Dose Preservative Free IM01/14/2024Moderna Sars-cov-2 (Covid-19) Vaccine, Mrna, Edmundo Protein 07/11/2024Pfizer Covid-19 Vaccine, Mrna, LNP-S, PF, zainab-sucrose, 30 mcg/0.3 mL 01/14/2024,3Pfizer OZES-YAJ-400/14/2021,05/27/2020,1RSV DDLTAIMSHDI66/04/2024 Family History Medical HistoryRelationCommentsAmblyopiaBrotherHeart diseaseFatherHypertension FatherMacular degenerationFatherAnemiaFather's BrotherGoutFather's BrotherHeart diseaseFather's BrotherHypertensionFather's BrotherKidney diseaseFather's BrotherHeart diseaseFather's SisterCancerMotherDiabetesMotherDiabetesMother's SisterHypertensionPaternal GrandmotherCancerSisterRetinal detachmentSister RelationStatusCommentsBrotherFatherFather's BrotherFather's SisterMotherMother's SisterPaternal GrandmotherSister Social History Tobacco UseTypesPacks/DayYears UsedDateSmoking Tobacco: HekpazZlikjnzjkv056.3 08/12/1970 - 12/15/1984Smokeless Tobacco: Never Tobacco Cessation:Counseling Given: Not Answered Alcohol UseStandard Drinks/WeekCommentsNot Currently1 (1 standard drink = 0.6 oz pure alcohol)1-2 drinks at mostCommentsUnknownSex and Gender Information ValueDate RecordedSex Assigned at BirthNot on fileLegal ZszYupopq05/14/2023 10:43 AM ESTGender IdentityNot on fileSexual OrientationNot on file Last Filed Vital Signs Vital SignReadingTime TakenCommentsBlood Nbvpqgnh313/76011/19/2024 12:43 PM CDT Shhap4149/08/2025 12:43 PM CDTTemperature--Respiratory Rate--Oxygen Saturation 96%11/19/2024 12:43 PM CDTInhaled Oxygen Concentration--Ietwxa445 kg (226 lb) 11/19/2024 12:43 PM HFWKjrzpi187.6 cm (5' 6)11/19/2024 12:43 PM CDTBody Mass Index36.4809 12:43 PM CDT Plan of Treatment DateTypeDepartmentCare Team (Latest Contact Info)Jnkcgcxzeyv46/01/2026Orders Only [facility] [place] [address] Dallas Caban MD [address] [place] [address] Chronic kidney disease stage 4 (HCC)03/18/2025 1:00 PM CSTOffice Visit [facility] [place] [phone] Dallas Caban MD [address] [place] [address] Health MaintenanceDue DateLast DoneCommentsBreast Cancer Rkdsojisg18/13/1951 Pneumococcal Vaccine: 50+ Years (1 of 2 - PCV)08/24/1970Colorectal Cancer Screening: Annual FOBT08/24/2000Colorectal Cancer Screening: Sigmoidoscopy 08/24/2000Colorectal Cancer Screening: Qmkaradmfxg86Influenza OuojkaoOfhjlnelr74/29/2025, 01/14/2024Hepatitis B VaccineAged OutNo longer eligible based on patient's age to complete this topic Procedures Procedure NamePriorityDate/TimeAssociated DiagnosisCommentsPTH, INTACTRoutine 03/04/2025 Chronic kidney disease stage 4 (HCC) URINE ALBUMIN / CREATININE SLQYYQopphni96/22/2025 Chronic kidney disease stage 4 (HCC) QWVSAKFUTAOhhwnep97/22/2025 Chronic kidney disease stage 4 (HCC) RENAL FUNCTION YMISGIwffoga35/22/2025 Chronic kidney disease stage 4 (HCC) from Last 3 Months Results * (ABNORMAL) Urine Albumin / Creatinine Ratio (03/04/2025)ComponentValueRef RangeTest MethodAnalysis TimePerformed AtPathologist SignatureAlbumin, Urine3 mg/LPRINT/EXTERNAL (NON-INTERFACED LABS)Creatinine, Urine Zoxrrx14.5mg/dL PRINT/EXTERNAL (NON-INTERFACED LABS)Alb/Creat Ratio, Ur40(H)mg/g Creat PRINT/EXTERNAL (NON-INTERFACED LABS)Specimen (Source)Anatomical Location / LateralityCollection Method / VolumeCollection TimeReceived TimeUrineUrine specimen obtained by clean catch procedure / Vqkndvq2103/04/2025 Narrative Authorizing ProviderResult TypeResult StatusShoals Hospital URINE ORDERABLESFinal ResultPerforming OrganizationAddressCity/State/ZIP CodePhone Number PRINT/EXTERNAL (NON-INTERFACED LABS) * (ABNORMAL) Hemoglobin (03/04/2025)ComponentValueRef RangeTest MethodAnalysis TimePerformed AtPathologist IeogxehllNzxkbwfwvz04.9(L)g/dLPRINT/EXTERNAL (NON- INTERFACED LABS)Specimen (Source)Anatomical Location / LateralityCollection Method / VolumeCollection TimeReceived TimeBloodVenous blood / Unknown 03/04/2025 Narrative Authorizing ProviderResult TypeResult [facility] BLOOD ORDERABLESFinal ResultPerforming OrganizationAddressty/State/ZIP CodePhone Number PRINT/EXTERNAL (NON-INTERFACED LABS) * (ABNORMAL) PTH, intact (03/04/2025)ComponentValueRef RangeTest MethodAnalysis TimePerformed AtPathologist SignatureParathyroid Hormone, Yqvomi480.4(H)pg/mL PRINT/EXTERNAL (NON-INTERFACED LABS)Specimen (Source)Anatomical Location / LateralityCollection Method / VolumeCollection TimeReceived TimeBloodVenous blood / Ktqkoza3803/04/2025 Narrative Authorizing ProviderResgerald [facility] TypeResShoals Hospital BLOOD ORDERABLESFinal ResultPerforming OrganizationAddressCity/State/ZIP CodePhone Number PRINT/EXTERNAL (NON-INTERFACED LABS) * (ABNORMAL) Renal function panel (03/04/2025)ComponentValueRef RangeTest Method Analysis TimePerformed AtPathologist TyedgxxdyPfruivn930(H)mg/dLPRINT/EXTERNAL (NON-INTERFACED LABS)BUN73(H)mg/dLPRINT/EXTERNAL (NON-INTERFACED LABS) Creatinine2.1(H)mg/dLPRINT/EXTERNAL (NON-INTERFACED LABS)Fgnohf683eBy/L PRINT/EXTERNAL (NON-INTERFACED LABS)Potassium4.4mEq/LPRINT/EXTERNAL (NON- INTERFACED LABS)Etqhlugx001QHMOG/EXTERNAL (NON-INTERFACED LABS)Carbon Dioxide 23mmol/LPRINT/EXTERNAL (NON-INTERFACED LABS)Calcium9.1mg/dLPRINT/EXTERNAL (NON-INTERFACED LABS)Phosphorus, Serum4.8(H)mg/dLPRINT/EXTERNAL (NON- INTERFACED LABS)Albumin (Blood)4.4g/dLPRINT/EXTERNAL (NON-INTERFACED LABS)eGFR 24PRINT/EXTERNAL (NON-INTERFACED LABS)Specimen (Source)Anatomical Location / LateralityCollection Method / VolumeCollection TimeReceived TimeBloodVenous blood / Baqjdyf1203/04/2025 Narrative Authorizing ProviderResult TypeResult StatusDallas Caban [facility] BLOOD ORDERABLESFinal ResultPerforming OrganizationAddressCity/State/ZIP CodePhone Number PRINT/EXTERNAL (NON-INTERFACED LABS) from Last 3 Months Insurance Care Teams Team MemberRelationshipSpecialtyStart DateEnd Date Tg Rouse DO [address] [place] [address] [facility]ufwkx86[facility]18/24
--- OUTSIDE RECORDS SUMMARY | 2025-03-05 00:20 | XMS_ITS | Encounter Summary ---
Author Organization [facility] [place] [place] Address [address] [place] [address] Phone Care Team Providers Care Herbarium Curator Name Role Phone Tg Rouse DO Primary Care Provider [phone] Reason for Visit * ReasonOnset GxifFrdgfhkcjubv81/17/2025 Encounter Details DateTypeDepartmentCare Team (Latest Contact Info)Acslpgnhsum16/17/2025Telephone [facility] [place] [address] [place] [address] Andrea Howell [address] [place] [phone] Social History Tobacco UseTypesPacks/DayYears UsedDateSmoking Tobacco: CasvugLmuhnifewa145.3 08/12/1970 - 12/15/1984Smokeless Tobacco: NeverAlcohol UseStandard Drinks/Week CommentsNot Currently1 (1 standard drink = 0.6 oz pure alcohol)1-2 drinks at mostCommentsUnknownSex and Gender InformationValueDate RecordedSex Assigned at BirthNot on fileLegal YslSutdws44/14/2023 10:43 AM ESTGender IdentityNot on fileSexual OrientationNot on filedocumented as of this encounter Miscellaneous Notes * Telephone Encounter - Andrea Howell - 02/27/2025 12:09 PM CST Left vm reminding patient to complete PVLs prior to their appointment. Informed in VM that PVLs were faxed to the [facility] to complete 1-2 weeks prior to their appt. documented in this encounter Plan of Treatment DateTypeDepartmentCare Team (Latest Contact Info)Bmxjbcqsxyv52/01/2026Orders Only [facility] [place] [address] Dallas Caban MD [address] [place] [phone] Chronic kidney disease stage 4 (HCC)03/18/2025 1:00 PM CSTOffice Visit [facility] [place] [address] Dallas Caban MD [address] [place] [phone] documented as of this encounter Visit Diagnoses Not on filedocumented in this encounter Care Teams Team MemberRelationshipSpecialtyStart DateEnd Date Tg Rouse DO [address] [place] [address] PCP - GeneralFamily Mzsztjzt65/18/24documented as of this encounter
== END 2025-03-04 11:11 | disposition home or self-care (01) ==
LOC: NPINS 11:10
PROVIDERS: PCP Family Medicine; Visit Provider Internal Medicine Nephrology
DX: N18.4 Chronic kidney disease, stage 4 (severe) (principal)
CPT/HCPCS: 80069; 82043; 82570; 83970